=== PATIENT | female | born 1935 | race Caucasian/White ===

== ENCOUNTER 2017-02-25 08:00 | Outpatient (CLI) | payer MEDICARE ==
[2017-02-25 19:30] LABS: BILIRUBIN,URINE NEGATIVE (NEGATIVE); GLUCOSE, URINE (UA) NEGATIVE (NEGATIVE); KETONES,URINE (UA) NEGATIVE (NEGATIVE); LEUKOCYTE ESTERASE, URINE NEGATIVE (NEGATIVE); NITRITE,URINE NEGATIVE (NEGATIVE); OCCULT BLOOD,URINE LARGE (NEGATIVE); PROTEIN,URINE TRACE mg/dL (NEGATIVE); UROBILINOGEN,URINE 0.2 (NORMAL) E.U./dL (NORMAL)
[2017-02-25 19:45] LABS: CLARITY,URINE CLEAR (CLEAR)
[2017-02-25 19:46] LABS: BACTERIA,URINE Rare /HPF (None Seen); MUCUS,URINE Few Strands; RBC,URINE TNTC /HPF (0-5); SQUAMOUS EPITHELIAL CELL,UR FEW Squamous (<= Few)
[2017-02-25 19:47] LABS: CASTS, URINE 0-2 Hyaline Casts /LPF
== END 2017-02-25 08:01 | disposition home or self-care (01) ==
LOC: LAB.R 08:00
PROVIDERS: ATTEND Physician Assistant Medical
DX: N39.0 Urinary tract infection, site not specified (principal)
CPT/HCPCS: 81001; 87086

== ENCOUNTER 2017-02-25 08:00 | Outpatient (CLI) | payer MEDICARE ==
[2017-02-25 19:16] LABS: ALBUMIN 4.4 g/dL (3.2-5.5); ALBUMIN/GLOBULIN RATIO 1.3 (1.0-2.2); ALKALINE PHOSPHATASE 77 IU/L (42-121); ALT ALANINE AMINOTRANSFERASE 27 IU/L (10-60); AST ASPARTATE AMINOTRANSFERASE 35 IU/L (10-42); BILIRUBIN,TOTAL 0.4 mg/dL (0.2-1.0); BUN - BLOOD UREA NITROGEN 27 mg/dL (6-20); CALCIUM 9.5 mg/dL (8.5-10.3); CARBON DIOXIDE - CO2 27 mmol/L (21-32); CHLORIDE 106 mmol/L (101-111); CREATININE 1.1 mg/dL (0.4-1.0); GFR - MDRD 48 (>89); GLUCOSE 89 mg/dL (70-100); SODIUM 142 mmol/L (135-145); TOTAL PROTEIN 7.7 g/dL (6.7-8.2)
[2017-02-25 19:18] LABS: BASOPHILS # (AUTO) 0.1 10^3/uL (0.0-0.1); BASOPHILS % (AUTO) 0.8 %; EOSINOPHILS # (AUTO) 0.3 10^3/uL (0.0-0.7); EOSINOPHILS % (AUTO) 3.9 %; HGB - HEMOGLOBIN 12.1 g/dL (12.0-16.0); LYMPHOCYTES # (AUTO) 2.5 10^3/uL (1.5-3.5); LYMPHOCYTES % (AUTO) 32.2 %; MEAN CORPUSCULAR HGB CONC 31.9 g/dL (32.0-36.0); MEAN CORPUSCULAR VOLUME 87.8 fL (81.0-99.0); MEAN PLATELET VOLUME 7.9 fL (7.9-10.8); MONOCYTES # (AUTO) 0.8 10^3/uL (0.0-1.0); MONOCYTES % (AUTO) 10.7 %; NEUTROPHILS # (AUTO) 4.1 10^3/uL (1.5-6.6); NEUTROPHILS % (AUTO) 52.4 %; PLT - PLATELET COUNT 379 10^3/uL (130-450); RED CELL DISTRIBUTION WIDTH 15.2 % (12.0-15.0); WHITE BLOOD COUNT 7.8 x10^3/uL (4.8-10.8)
== END 2017-02-25 08:01 ==
LOC: LAB.WCP 08:00
PROVIDERS: ATTEND Physician Assistant Medical
DX: R53.1 Weakness (principal); F03.90 Unspecified dementia, unspecified severity, without behavioral disturbance, psychotic disturbance, mood disturbance, and anxiety; N39.0 Urinary tract infection, site not specified
CPT/HCPCS: 36415; 80053; 81001; 84443; 85025; 87086

== ENCOUNTER 2017-03-16 16:50 | Outpatient (CLI) | payer MEDICARE, OTHER | END 2017-03-16 16:51 | disposition critical access hospital (66) | LOC: EMS 16:50 | PROVIDERS: ATTEND Surgery | DX: S01.112A Laceration without foreign body of left eyelid and periocular area, initial encounter (principal); W01.0XXA Fall on same level from slipping, tripping and stumbling without subsequent striking against object, initial encounter; Y93.01 Activity, walking, marching and hiking; Y92.099 Unspecified place in other non-institutional residence as the place of occurrence of the external cause | CPT/HCPCS: A0425; A0429 ==

== ENCOUNTER 2017-03-16 17:05 | Emergency (ER) | payer MEDICARE, OTHER ==
[2017-03-16] MEDS ORDERED: TETANUS/DIPHTHERIA/PERTUSSIS 0.5 ML SYRINGE IM ONE (17:09)
[2017-03-16] MEDS ORDERED: LIDOCAINE-EPINEPH-TETRACAINE 3 ML SYRINGE TOP STA (17:10)
--- NOTE | 2017-03-16 17:11 | ED Physician Documentation ---
PD HPI HEAD INJURY - Stated complaint Stated Complaint: GLF HEAD LAC - History obtained from History obtained from: EMS - History of Present Illness Mechanism of head injury: Other (History from paramedics as the patient is very demented and does not remember falling. I guess she had a ground-level fall at the assisted living center today and has a laceration above her left eyebrow. Last tetanus is unknown. It sounds like she probably did not have loss of consciousness. The patient is without specific complaint.) Review of Systems Unable to obtain: Dementia PD PAST MEDICAL HISTORY - Allergies Allergies/Adverse Reactions: Allergies Allergy/AdvReac Type Severity Reaction Status Date / Time No Known Drug Allergies Allergy Verified 03/16/17 17:18 PD ED PE NORMAL - Vitals Vital signs reviewed: Yes - General General: Other (She is alert and pleasant but completely disoriented.) - HEENT HEENT: PERRL, EOMI, Other (There is a 1.5 cm laceration in the lateral part of the left eyebrow without underlying bony tenderness) - Neck Neck: Supple, no meningeal sign, No bony TTP - Back Back: No spinal TTP - Extremities Extremities: No deformity, No tenderness to palpate, Normal ROM s pain, No edema , No calf tenderness / cord - Neuro Neuro: solar sales ambassador 2-12 intact, No motor deficit, No sensory deficit Eye Opening: Spontaneous Motor: Obeys Commands Verbal: Confused GCS Score: 14 Results - Vitals Vitals: Vital Signs - 24 hr 03/16/17 03/16/17 17:09 18:32 Temperature 36.3 C L Heart Rate 69 89 Respiratory 16 18 Rate Blood Pressure 118/71 O2 Saturation 97 Oxygen O2 Source Room air - Rads (name of study) CT head and Cspine Radiology: EMP read contemporaneously (NAD) Procedures - Laceration (location) L forehead Length in cm: 1 Wound type: Linear Wound Preparation: Irrigated copiously NS Skin layer closure: Dermabond Other: Tetanus booster given Complexity: Simple PD MEDICAL DECISION MAKING - ED course ED course: Daughter arrived at bedside. Usually I would suture wound on the face in the eyebrow, but the patient became agitated with attempts at cleaning it became clear that this really would not work and it was Dermabond it instead with good results. Departure - Departure Disposition: 01 Home, Self Care Clinical Impression: Facial laceration Qualifiers: Encounter type: initial encounter Qualified Code(s): S01.81XA - Laceration without foreign body of other part of head, initial encounter Fall Qualifiers: Encounter type: initial encounter Qualified Code(s): W19.XXXA - Unspecified fall, initial encounter Head injury Qualifiers: Encounter type: initial encounter Qualified Code(s): S09.90XA - Unspecified injury of head, initial encounter Instructions: ED Head Injury Closed, ED Laceration Face Skin Glue Ch Discharge Date/Time: 03/16/17 18:33
[2017-03-16 17:18] VITALS: BP 118/71
--- NOTE | 2017-03-16 18:15 | CT Report ---
EXAM: CT HEAD EXAM DATE: 03/16/2017 05:56 PM. CLINICAL HISTORY: Confusion. COMPARISON: None. TECHNIQUE: Multiaxial CT images were obtained from the foramen magnum to the vertex. Reformats: Coron al. IV contrast: None. In accordance with CT protocol optimization, one or more of the following dose reduction techniques w ere utilized for this exam: automated exposure control, adjustment of mA and/or KV based on patient s ize, or use of iterative reconstructive technique. FINDINGS: Parenchyma: No intraparenchymal hemorrhage. No evidence of mass, midline shift, or CT findings of inf arction. Meeks-white differentiation is distinct. Extraaxial Spaces: There is generalized volume loss. No subdural or epidural collections identified. Ventricles: Normal in size and position. Sinuses and Orbits: Imaged paranasal sinuses, orbits, and mastoids show no significant abnormality. Bones: No evidence of fracture or calvarial defect. Other: Likely left frontal scalp soft tissue swelling. IMPRESSION: No acute intracranial CT abnormality. [facility] Referring Provider Line: [phone] SITE ID: [id number]
--- NOTE | 2017-03-16 18:17 | CT Report ---
EXAM: CT CERVICAL SPINE WITHOUT CONTRAST DATE: 03/16/2017 05:56 PM. HISTORY: Fall, confusion COMPARISONS: None. TECHNIQUE: Thin-section axial images were acquired of the cervical spine without contrast. Post-proce ssing: Coronal and sagittal reformats. Other: None. In accordance with CT protocol optimization, one or more of the following dose reduction techniques w ere utilized for this exam: automated exposure control, adjustment of mA and/or KV based on patient s ize, or use of iterative reconstructive technique. FINDINGS: Alignment: No evidence of dislocation. Bones: No fracture or bone lesion. Interspace Levels/Facets: There is moderate multilevel degenerative disease. Musculature: No significant abnormalities are seen. Other: No evidence of prevertebral soft tissue swelling or apical pneumothorax. IMPRESSION: No evidence of cervical spine fracture or dislocation. [facility] Referring Provider Line: [phone] SITE ID: [id number]
== END 2017-03-16 18:33 | disposition home or self-care (01) ==
LOC: EDUNIT# → SUPCPDRO 17:05 → ED 17:05
DX: S01.81XA Laceration without foreign body of other part of head, initial encounter (principal); W01.0XXA Fall on same level from slipping, tripping and stumbling without subsequent striking against object, initial encounter; Y92.099 Unspecified place in other non-institutional residence as the place of occurrence of the external cause; Z23 Encounter for immunization; F03.90 Unspecified dementia, unspecified severity, without behavioral disturbance, psychotic disturbance, mood disturbance, and anxiety
CPT/HCPCS: 12011; 70450; 72125; 90471; 99283

== ENCOUNTER 2017-04-20 11:05 | Outpatient (CLI) | payer MEDICARE, OTHER ==
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
== END 2017-04-20 11:06 | disposition home or self-care (01) ==
LOC: PC 11:05
PROVIDERS: ATTEND Nurse Practitioner
DX: Z51.5 Encounter for palliative care (principal); F03.90 Unspecified dementia, unspecified severity, without behavioral disturbance, psychotic disturbance, mood disturbance, and anxiety; F32.9 Major depressive disorder, single episode, unspecified; K59.00 Constipation, unspecified; M19.90 Unspecified osteoarthritis, unspecified site; K21.9 Gastro-esophageal reflux disease without esophagitis; Z91.81 History of falling; R26.81 Unsteadiness on feet; Z87.891 Personal history of nicotine dependence; Z79.82 Long term (current) use of aspirin; Z79.1 Long term (current) use of non-steroidal anti-inflammatories (NSAID); Z66 Do not resuscitate

== ENCOUNTER 2017-06-29 12:40 | Outpatient (CLI) | payer MEDICARE, OTHER ==
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
== END 2017-06-29 12:41 | disposition home or self-care (01) ==
LOC: PC 12:40
PROVIDERS: ATTEND Nurse Practitioner
DX: Z51.5 Encounter for palliative care (principal); N39.0 Urinary tract infection, site not specified; F03.91 Unspecified dementia, unspecified severity, with behavioral disturbance; F32.9 Major depressive disorder, single episode, unspecified; K59.00 Constipation, unspecified; R63.4 Abnormal weight loss; Z91.81 History of falling; Z66 Do not resuscitate

== ENCOUNTER 2017-07-26 15:05 | Outpatient (CLI) | payer MEDICARE, OTHER ==
--- NOTE | 2017-07-26 18:16 | CONSULTATION NOTE ---
Palliative Care Follow Up - Referral Referring Provider: Dr Ren Time of Visit: 07/26/2017. 15:05 - 15:35 Referral setting: Assisted living (Seen in home setting due to taxing and considerable effort required to leave the home due to limited mobility secondary to advanced dementia.) Referral Reason: Follow up UTI - Information Sources Records reviewed: RN notes reviewed, Previous records reviewed History/Review of Systems obtained from: Family, Nursing Exam limitations: Clinical condition (Advanced dementia) - History of Present Illness Update Brief HPI Update: -82-year-old woman with advanced dementia, in relatively good health without diagnoses foor cardiovascular respiratory disease or diabetes. -She was successfully treated for a UTI on 06/29/17, resolving her symptom burden , including no reported falls or resident altercations since then, and is back to her baseline cognitive status. -Medical history: Degenerative disc disease of lumbar, h/o long-term steroid and long-term aspirin use, h/o smoking. -Patient is lying in bed, responding with word salad and reaching out toward my face and hair, this is typical behavior for her. She was mildly resistant during parts of the exam. -She appears calm and relaxed, and arouses easily but wants to curl back up to nap. -Nursing reports she refuses medicines fairly routinely, also is erratic about meals. -She has had a mild drop in weight, previously in the 150-157 lb range, but since April she has ranged from 145 - 148 lbs. -Intermittent behaviors within the normal range for this demographic, but she is easily redirectable. -Spoke with daughter regarding starting D Mannose as E coli UTI prophylactic. Social History - Living Situation Living arrangement: Assisted living ([facility] dementia unit) Living Situation: With caregiver(s) Support System: Daughter/VAN Cruz lives close by, works at a local school. The patient also has two sons. Medications/Allergies - Medications Home Medications: Ambulatory Orders Medication Instructions Recorded Confirmed Acetaminophen 500 mg PO Q4H PRN 04/20/17 04/20/17 Aspirin 81 mg PO DAILY 04/20/17 06/29/17 Citalopram Hydrobromide 20 mg PO DAILY 04/20/17 06/29/17 [Citalopram HBr] Diclofenac Sodium [Voltaren] 100 gm TP BID PRN 04/20/17 06/29/17 Multivitamin [Multiple Vitamins] 1 ea PO DAILY 04/20/17 06/29/17 Naproxen Sodium 220 mg PO BID 04/20/17 06/29/17 Omeprazole 20 mg PO DAILY 04/20/17 06/29/17 Polyethylene Glycol 3350 [Miralax] 17 gm PO DAILY PRN 04/20/17 06/29/17 Acetaminophen [Arthritis Pain 1,300 mg PO BID MDD NTE 3000MG IN 06/29/17 Relief] 24 HOURS Sulfamethox/Trimeth 800/160 1 tab PO BID MDD take for 5 days 06/29/17 06/29/17 [Bactrim Ds] - Allergies Allergies/Adverse Reactions: Allergies Allergy/AdvReac Type Severity Reaction Status Date / Time No Known Drug Allergies Allergy Verified 03/16/17 17:18 Review of Systems - Constitutional Constitutional: reports: Poor appetite (sporadic), Weight loss (mild drop in weight, previously in the 150-157 lb range, but since April she has ranged from 145 - 148 lbs. 07/25 145.2 lbs. 07/21 148 lbs. 07/07 145 lbs. 06/23 147 lbs. 147 lbs. 05/26 146.4 lbs. 05/19 150.8 lbs. 05/12 149.6 lbs. 04/26 152.2 lbs. 04/21 151.8 lbs. 04/02 153.6 bs. 02/28 157.8 lbs. 01/22/17 153.2 lbs. 06/26/16 152 lbs. 151.6 lbs.) - Cardiovascular Cardiovascular: denies: Decr. exercise tolerance - Respiratory Respiratory: denies: Cough - Musculoskeletal Musculoskeletal: denies: Assistive devices (doesn't like to use w/c or walker), Transfer issues Physical Exam - Vital Signs Temperature: 97.1 F Pulse Rate: 71 O2 Saturation: 95 Blood Pressure: 123/52 - Physical Exam General Appearance: positive: No acute distress Eyes Bilateral: positive: No lid inflammation, Conjunctivae nml, No scleral icterus ENT: positive: No signs of dehydration Neck: positive: Trachea midline Cardiovascular: positive: Regular rate & rhythm Respiratory: positive: Chest non-tender, No respiratory distress, Diminished throughout (mildly) Abdomen: negative: Guarding Skin: positive: No symptoms Extremities: positive: No pedal edema Neurologic/Psychiatric: positive: Disoriented to person, Disoriented to place, Disoriented to time, Unintelligible speech, Flat affect Palliative Care - POLST Patient has POLST: Yes POLST Status: DNR, Comfort Measures Pain: No pain, Comment (Managed with routine naproxin BID and routine Tylenol daily.) Drowsiness/Sedation: Mild (1-3) Anxiety: None Anorexia: Mild (1-3) - Palliative Care Discussion: Goals remain the same: focus on comfort and quality of life, not prolongation of life. Impression and Recommendations - Palliative Care Impression: This is an 82-year-old woman with quite advanced dementia, who has rebounded well since being treated for a UTI last month, and is back to her baseline behaviors and cognitive levels. There are no reports of recent falls since her UTI was treated, but she continues to be ambulatory and at high risk of falls and their sequelae. D-Mannose will be started as a prophylactic for E coli infections. Palliative care will continue to monitor and recommend transition to Hospice when appropriate. Recommendations/Counseling Done: h/o UTI: Infection from last month successfully resolved with Bactrim regimen of 5 days. Start D-Mannose for UTI prophylaxis: 500 mg capsule, 4 caps (2g) daily. Also OK to give 1g (2 caps) BID. Can open capsules and mix with pudding , etc. Advanced dementia with depression: Behaviors have returned to baseline, with no report of altercations. Cognition and mood at baseline. Continue citalopram. Constipation: BMs from daily to every 2-3 days. On Miralax and Senna daily. Continue to monitor. Osteoarthritis: Stable, no indications of pain. Contniue Naproxen and Tylenol BID and Voltaren 1% gel prn. Advanced care planning: No updates. Family's goals are comfort care and quality of life. Time Spent: 30 minutes were spent with more than 50% of the time spent on counseling, education, and coordination of care.
== END 2017-07-26 15:06 | disposition home or self-care (01) ==
LOC: PC 15:05
PROVIDERS: ATTEND Nurse Practitioner
DX: Z51.5 Encounter for palliative care (principal); F03.90 Unspecified dementia, unspecified severity, without behavioral disturbance, psychotic disturbance, mood disturbance, and anxiety; R63.4 Abnormal weight loss; F32.9 Major depressive disorder, single episode, unspecified; K59.00 Constipation, unspecified; Z66 Do not resuscitate; Z91.81 History of falling; Z87.440 Personal history of urinary (tract) infections

== ENCOUNTER 2017-10-20 10:15 | Outpatient (CLI) | payer MEDICARE, OTHER ==
--- NOTE | 2017-10-20 18:44 | CONSULTATION NOTE ---
Palliative Care Follow Up - Referral Referring Provider: Dr Ren Time of Visit: 10/20/2017. 10:15 - 10:35 Referral setting: Assisted living (Seen in home setting due to taxing and considerable effort required to leave the home due to limited mobility secondary to advanced dementia.) Referral Reason: Dementia - Information Sources Records reviewed: Previous records reviewed History/Review of Systems obtained from: Patient, Nursing Exam limitations: Clinical condition (Advanced dementia, short-term memory deficits) - History of Present Illness Update Brief HPI Update: -82-year-old woman with advanced dementia, in relatively good health without diagnoses for cardiovascular respiratory disease or diabetes. -Medical history: Degenerative disc disease of lumbar, h/o long-term steroid and long-term aspirin use, h/o smoking, h/o frequent falls, weight loss, h/o recurrent UTIs. -She has a history of UTIs, but no reported UTI since starting D-Mannose as a prophylaxis in July 2017.. -Patient continues with stable behaviors, but relatively frequent, non-injury falls (she refuses to use wheelchair or walker). -She has a sporadic appetite and is slowly losing weight. She is 143.8 lbs in September. Between April - August 2017 she ranged from 145 - 148 lbs, and previous to that was in the 150-157 lb range. -She likes a certain quiet corner in the facility where she enjoys lying back in the recliner. -Today she is cooperative and sociable, although she refuses to allow me to take any vital signs. -She is always busy with her hands, fidgeting today with one of her shoes, and touching me, my clothes, my badge. -She is at her baseline cognition and function. Nursing reports no issues and that she has been very stable for several months. -Left two voicemail messages for Nancy, her daughter. Social History - Living Situation Living arrangement: Assisted living ([facility] dementia unit) Living Situation: With caregiver(s) Support System: Daughter/DPSHONA waller lives close by and works at a local school. The patient also has two sons. Medications/Allergies - Medications Home Medications: Ambulatory Orders Medication Instructions Recorded Confirmed Acetaminophen 500 mg PO Q4H PRN 04/20/17 10/20/17 Aspirin 81 mg PO DAILY 04/20/17 10/20/17 Citalopram Hydrobromide 20 mg PO DAILY 04/20/17 10/20/17 [Citalopram HBr] Diclofenac Sodium [Voltaren] 100 gm TP BID PRN 04/20/17 10/20/17 Multivitamin [Multiple Vitamins] 1 ea PO DAILY 04/20/17 10/20/17 Naproxen Sodium 220 mg PO BID 04/20/17 10/20/17 Omeprazole 20 mg PO DAILY 04/20/17 10/20/17 Polyethylene Glycol 3350 [Miralax] 17 gm PO DAILY PRN 04/20/17 10/20/17 Acetaminophen [Arthritis Pain 1,300 mg PO BID MDD NTE 3000MG IN 06/29/17 Relief] 24 HOURS D-Mannose Capsule 2,000 mg PO DAILY 10/20/17 10/20/17 Senna [Senokot] 2 tab PO DAILY 10/20/17 10/20/17 - Allergies Allergies/Adverse Reactions: Allergies Allergy/AdvReac Type Severity Reaction Status Date / Time No Known Drug Allergies Allergy Verified 03/16/17 17:18 Review of Systems - Constitutional Constitutional: reports: Weight loss (Steadily losing weight: 143.8 lbs in September. Between April - August 2017 she ranged from 145 - 148 lbs., and previous to that was in the 150-157 lb range. 07/25 145.2 lbs. 07/21 148 lbs. 07/07 145 lbs. 06/23 147 lbs. 06/02 147 lbs. 05/26 146.4 lbs. 05/19 150.8 lbs. 05/12 149.6 lbs. 04/26 152.2 lbs. 04/21 151.8 lbs. 04/02 153.6 bs. 02/28 157.8 lbs. 01/22/17 153.2 lbs. 06/26/16 152 lbs. 04/26/16 151.6 lbs.) - Musculoskeletal Musculoskeletal: reports: Assistive devices (doesn't like using wheelchair or walker, so has h/o falls), Transfer issues - Neurological Neurological: reports: Memory problems - Hematologic/Lymphatic Hematologic/Lymphatic: reports: Recurrent infections (h/o UTIs) - Other Findings Other Findings: Unable to obtain ROS from patient. Physical Exam - Physical Exam General Appearance: positive: No acute distress, Alert Eyes Bilateral: positive: Conjunctivae nml, No scleral icterus ENT: positive: No signs of dehydration Neck: positive: No JVD, Trachea midline Cardiovascular: positive: Regular rate & rhythm Respiratory: positive: Chest non-tender, No respiratory distress, Breath sounds nml Skin: positive: No symptoms Extremities: positive: Nml appearance, No pedal edema Neurologic/Psychiatric: positive: Mood/affect nml, Disoriented to person, Disoriented to place, Disoriented to time, Unintelligible speech (word salad) Palliative Care - POLST Patient has POLST: Yes POLST Status: DNR, Comfort Measures Pain: Pain unchanged, Comment (Pain managed with routine naproxen and routine arthritis caplet - acetaminophen 1300mg BID.) Impression and Recommendations - Palliative Care Impression: 82-year-old woman with advanced dementia, and no recent UTIs since starting D- mannose as a prophylactic in July 2017. Patient is stable and at her baseline functionally and cognitively but continues to steadily lose weight, due to sporadic appetite and disinterest in food secondary to her advanced dementia. Palliative care will continue to monitor and recommend transition to hospice when criteria are met. Recommendations/Counseling Done: h/o frequent UTIs: Improved, with no recent UTIs since starting D-Mannose 2000mg daily (4 capsules) in July 2017. Advanced dementia with depression: Good, at baseline, no behaviors reports. Continue citalopram. Constipation: Good, has daily bowel movements usually, with sometimes 2-3 days without. Continue Miralax and Senna. Osteoarthritis: At baseline on routine naproxen and "arthritis pain" acetaminophen (1300mg BID) and voltaren gel. Advanced care planning: Left two messages with daughter. Goals are comfort care and quality of life. POLST signed and in place. Follow up 4-6 weeks and as needed. Time Spent: 20 minutes were spent with more than 50% of the time spent on counseling and coordination of care.
== END 2017-10-20 10:16 | disposition home or self-care (01) ==
LOC: PC 10:15
PROVIDERS: ATTEND Nurse Practitioner
DX: Z51.5 Encounter for palliative care (principal); F03.90 Unspecified dementia, unspecified severity, without behavioral disturbance, psychotic disturbance, mood disturbance, and anxiety; R63.4 Abnormal weight loss; F32.9 Major depressive disorder, single episode, unspecified; K59.00 Constipation, unspecified; M19.90 Unspecified osteoarthritis, unspecified site; Z66 Do not resuscitate; Z79.82 Long term (current) use of aspirin; Z91.81 History of falling; Z87.440 Personal history of urinary (tract) infections

== ENCOUNTER 2017-12-28 15:00 | Outpatient (CLI) | payer MEDICARE, OTHER ==
--- NOTE | 2017-12-28 16:28 | CONSULTATION NOTE ---
Palliative Care Follow Up - Referral Referring Provider: Dr Andrew Ren Time of Visit: 12/28/2017. 15:00 - 15:15 Referral setting: Assisted living (Seen in home setting due to taxing and considerable effort required to leave the home due to limited mobility secondary to advanced dementia.) Referral Reason: Dysuria, dementia - Information Sources Records reviewed: RN notes reviewed, Previous records reviewed History/Review of Systems obtained from: Family, Nursing Exam limitations: Clinical condition (Advanced dementia; aphasia) - History of Present Illness Update Brief HPI Update: -82-year-old woman with advanced dementia, in relatively good health without diagnoses for cardiovascular respiratory disease or diabetes. -Medical history: Degenerative disc disease of lumbar, h/o long-term steroid and long-term aspirin use, h/o smoking, h/o frequent falls, weight loss, h/o recurrent UTIs. -She has a history of UTIs, improved since starting D-Mannose as a prophylaxis in July 2017. -She's at her baseline:fidgeting with hands, mental confusion, and word salad. -Today she is cooperative and relaxed with the assessment, which is conducted mostly standing since she does not want to sit down for long. She allows me to get her vital signs which normally she refuses. She makes sporadic eye contact, reaches out for my hand, to touch my clothes, takes my name tag. -Nursing has reported that the patient has burning with urination. I authorized a clean catch for urinalysis with culture, if they are able to obtain it. -If not, and if symptoms continue, we can start a prophylactic antibiotic. I spoke with Nancy, her daughter, about the benefits and burdens, and she agreed with this plan. -Nursing will monitor for continuing or new symptoms. -The patient is slowly losing weight. She is currently 140.4 lbs, down from a previous range of 150-157 lbs prior to April 2017. -The patient walks without aid of a walker and can wander in to other residents' rooms, or lies down on her roommate's bed. Social History - Living Situation Living arrangement: Assisted living ([facility] dementia unit) Living Situation: With caregiver(s) Support System: Daughter/DPSHOAN Cruz lives close by and works at a local school. The patient also has two sons. Medications/Allergies - Medications Home Medications: Ambulatory Orders Medication Instructions Recorded Confirmed Acetaminophen 500 mg PO Q4H PRN 04/20/17 12/28/17 Aspirin 81 mg PO DAILY 04/20/17 12/28/17 Citalopram Hydrobromide 20 mg PO DAILY 04/20/17 12/28/17 [Citalopram HBr] Diclofenac Sodium [Voltaren] 100 gm TP BID PRN 04/20/17 12/28/17 Multivitamin [Multiple Vitamins] 1 ea PO DAILY 04/20/17 12/28/17 Naproxen Sodium 220 mg PO BID 04/20/17 12/28/17 Omeprazole 20 mg PO DAILY 04/20/17 12/28/17 Polyethylene Glycol 3350 [Miralax] 17 gm PO DAILY PRN 04/20/17 12/28/17 Acetaminophen [Arthritis Pain 1,300 mg PO BID MDD NTE 3000MG IN 06/29/17 12/28/17 Relief] 24 HOURS D-Mannose Capsule 2,000 mg PO DAILY 10/20/17 12/28/17 Senna [Senokot] 2 tab PO DAILY 10/20/17 12/28/17 - Allergies Allergies/Adverse Reactions: Allergies Allergy/AdvReac Type Severity Reaction Status Date / Time No Known Drug Allergies Allergy Verified 03/16/17 17:18 Review of Systems - Constitutional Constitutional: reports: Weight loss (140.4 lbs 12/25/2017. 143.8 lbs September . Range was 145-148 from April to August 2017, and previous to that, range was 150- 157 lbs.) - Cardiovascular Cardiovascular: denies: Decr. exercise tolerance - Gastrointestinal Gastrointestinal: reports: Constipation (episodic, managed) - Musculoskeletal Musculoskeletal: reports: Assistive devices (doesn't like using walker or whee lchair.). denies: Transfer issues - Neurological Neurological: reports: Memory problems, Other (word salad) Physical Exam - Vital Signs Temperature: 96.5 F Pulse Rate: 80 O2 Saturation: 97 (room air) Blood Pressure: 131/97 (wrist cuff) - Physical Exam General Appearance: positive: No acute distress, Alert Eyes Bilateral: positive: EOMI, No lid inflammation, Conjunctivae nml, No scleral icterus ENT: positive: No signs of dehydration Neck: positive: Trachea midline Cardiovascular: positive: Regular rate & rhythm, No murmur Respiratory: positive: Chest non-tender, No respiratory distress, Breath sounds nml Skin: positive: No symptoms Extremities: positive: Nml appearance, No pedal edema Neurologic/Psychiatric: positive: Mood/affect nml, Disoriented to person, Disoriented to place, Disoriented to time Palliative Care - POLST Patient has POLST: Yes POLST Status: DNR, Comfort Measures Pain: Pain unchanged, Comment (Managed with routine naproxen and Tylenol, with Voltaren gel as needed) Performance Status: Ambulatory, self-transfers. At baseline for confusion and disorientation to self, place, time. Today is cooperative and calm during assessment. Impression and Recommendations - Palliative Care Impression: 82-year-old woman with advanced dementia, has had no reported UTIs since starting D-mannose as a prophylactic in July 2017. Today nursing reports b urning with urination, so will run a urine culture if patient cooperates. Patient continues to steadily lose weight, due to sporadic appetite and disinterest in food secondary to her advanced dementia. Palliative care will continue to provide support and monitor for to hospice when appropriate. Recommendations/Counseling Done: UTIs: Nursing reports new incidence of burning with urination. Patient has h/o frequent UTIs but has had none since starting D-Mannose 2000mg daily in July 2017. Run UA with C&S if indicated. Continue D-Mannose. Will start empiric antibiotic if unable to obtain UA. Monitor Advanced dementia with depression: Continues at baseline cognition with no behavioral issues. Continue citalopram. Constipation: At baseline, with daily bowel movements interspersed with periods of several days of no bowel movements. . Is on daily Miralax and two tablets Senna. Osteoarthritis: Stable. Continue routine naproxen and acetaminophen (1300mg BID), with voltaren gel as needed. Weight loss: Appetite is sporadic, continue to monitor and consider adding protein shake/supplement. Advanced care planning: Spoke with daughter regarding urinalysis and starting an empiric antibiotic if clean catch is not successful. Patient agrees to this plan. Goals remain comfort care and quality of life. POLST signed and in place. Follow up on the urinalysis, and every 6-8 weeks or as needed. Time Spent: 15 minutes were spent with more than 50% of the time spent on counseling and coordination of care.
== END 2017-12-28 15:01 | disposition home or self-care (01) ==
LOC: PC 15:00
PROVIDERS: ATTEND Nurse Practitioner
DX: Z51.5 Encounter for palliative care (principal); F03.90 Unspecified dementia, unspecified severity, without behavioral disturbance, psychotic disturbance, mood disturbance, and anxiety; R29.6 Repeated falls; F32.9 Major depressive disorder, single episode, unspecified; K59.00 Constipation, unspecified; M19.90 Unspecified osteoarthritis, unspecified site; R63.4 Abnormal weight loss; Z87.440 Personal history of urinary (tract) infections; Z79.82 Long term (current) use of aspirin

== ENCOUNTER 2018-02-13 19:34 | Outpatient (CLI) | payer MEDICARE, OTHER | END 2018-02-13 19:35 | disposition critical access hospital (66) | LOC: EMS 19:34 | PROVIDERS: ATTEND Surgery | DX: M54.5 Low back pain (principal) | CPT/HCPCS: A0425; A0429 ==

== ENCOUNTER 2018-02-13 19:48 | Emergency (ER) | payer MEDICARE, OTHER ==
--- NOTE | 2018-02-13 20:02 | ED Physician Documentation ---
PD HPI BACK PAIN - Stated complaint Stated Complaint: BACK PAIN - History obtained from History obtained from: Patient, EMS, Caregiver - History of Present Illness Timing - onset: Today Timing - duration: Days (1) Timing - details: Abrupt onset (The patient has significant dementia and cannot give history. No noted falls recently by report. Had some falls or just found on floor bedside by providers occasionally. Not today. Staff noted the patient to be in pain when they were sitting her up or turning her. She was reluctant to try walking, and grimaced with movement.) Location: Other (seemed like back pain but hard to assess where due to her dementia.) Quality: Pain Associated symptoms: No: Fever, Weakness, Numbness Worsened by: Movement Contributing factors: No: Lifting, Twisting Similar symptoms before: Has not had sx before Recently seen: Clinic ([facility]) Review of Systems Unable to obtain: Dementia, Other (info from daughter at bedside, who sees her often.) Constitutional: denies: Fever Respiratory: denies: Cough GI: denies: Vomiting, Diarrhea, Bloody / black stool Skin: denies: Rash, Laceration (s) Neurologic: reports: Confused (chronic with the dementia). denies: Head injury PD PAST MEDICAL HISTORY - Past Medical History Cardiovascular: None Respiratory: None Neuro: Dementia Endocrine/Autoimmune: None - Past Surgical History Past Surgical History: No - Present Medications Home Medications: Ambulatory Orders Medication Instructions Recorded Confirmed Acetaminophen 500 mg PO Q4H PRN 04/20/17 12/28/17 Aspirin 81 mg PO DAILY 04/20/17 12/28/17 Citalopram Hydrobromide 20 mg PO DAILY 04/20/17 12/28/17 [Citalopram HBr] Diclofenac Sodium [Voltaren] 100 gm TP BID PRN 04/20/17 12/28/17 Multivitamin [Multiple Vitamins] 1 ea PO DAILY 04/20/17 12/28/17 Naproxen Sodium 220 mg PO BID 04/20/17 12/28/17 Omeprazole 20 mg PO DAILY 04/20/17 12/28/17 Polyethylene Glycol 3350 [Miralax] 17 gm PO DAILY PRN 04/20/17 12/28/17 Acetaminophen [Arthritis Pain 1,300 mg PO BID MDD NTE 3000MG IN 06/29/17 12/28/17 Relief] 24 HOURS D-Mannose Capsule 2,000 mg PO DAILY 10/20/17 12/28/17 Senna [Senokot] 2 tab PO DAILY 10/20/17 12/28/17 Tramadol HCl 50 mg PO Q6H PRN #25 tablet 02/13/18 - Allergies Allergies/Adverse Reactions: Allergies Allergy/AdvReac Type Severity Reaction Status Date / Time No Known Drug Allergies Allergy Verified 02/13/18 19:54 - Living Situation Living Situation: reports: Alone Living Arrangement: reports: shelter - Social History Does the pt smoke?: No Smoking Status: Never smoker Does the pt drink ETOH?: No Does the pt have substance abuse?: No - Immunizations Immunizations are current?: No - POLST Patient has POLST: Yes PD ED PE NORMAL - Vitals Vital signs reviewed: Yes - General General: No acute distress, Well developed/nourished. No: Alert and oriented X 3 (alert and conversant but not oriented to person nor place. ) - HEENT HEENT: Atraumatic - Neck Neck: Supple, no meningeal sign, No adenopathy - Cardiac Cardiac: RRR, No murmur - Respiratory Respiratory: Clear bilaterally - Abdomen Abdomen: Soft, Non tender - Back Back: No CVA TTP, Other (some mild spinal tenderness in thoracolumbar area; hard to pin down exact location.) - Derm Derm: Normal color, Warm and dry - Neuro Neuro: No motor deficit, No sensory deficit, Other (normal knee reflexes. ) Results - Vitals Vitals: Vital Signs - 24 hr 02/13/18 02/13/18 19:54 23:06 Temperature 37.0 C Heart Rate 81 80 Respiratory 16 16 Rate Blood Pressure 110/76 110/78 O2 Saturation 100 100 Oxygen O2 Source Room air - Labs Labs: Laboratory Tests 02/13/18 02/13/18 02/13/18 20:23 20:23 20:23 WBC 10.5 RBC 4.31 Hgb 13.5 Hct 41.1 MCV 95.5 MCH 31.4 H MCHC 32.8 RDW 13.8 Plt Count 282 MPV 7.5 L Neut # (Auto) 6.9 H Lymph # (Auto) 2.3 [place] # (Auto) 1.0 Eos # (Auto) 0.1 Baso # (Auto) 0.1 Absolute Nucleated RBC 0.00 Nucleated RBC % 0.0 Sodium 141 Potassium 4.0 Chloride 108 Carbon Dioxide 25 Anion Gap 8.0 BUN 23 H Creatinine 0.9 Estimated GFR (MDRD) 60 L Glucose 118 H Lactic Acid 1.0 Calcium 9.0 Magnesium 2.1 Total Bilirubin 0.8 AST 27 ALT 23 Alkaline Phosphatase 69 Total Protein 7.0 Albumin 3.9 Globulin 3.1 Albumin/Globulin Ratio 1.3 Lipase 41 Urine Color Urine Clarity Urine pH Ur Specific [place] Urine Protein Urine Glucose (UA) Urine Ketones Urine Occult Blood Urine Nitrite Urine Bilirubin Urine Urobilinogen Ur Leukocyte Esterase Urine RBC Urine WBC Urine WBC Clumps Ur Squamous Epith Cells Urine Bacteria Ur Microscopic Review Urine Culture Comments 02/13/18 20:50 WBC RBC Hgb Hct MCV MCH MCHC RDW Plt Count MPV Neut # (Auto) Lymph # (Auto) [place] # (Auto) Eos # (Auto) Baso # (Auto) Absolute Nucleated RBC Nucleated RBC % Sodium Potassium Chloride Carbon Dioxide Anion Gap BUN Creatinine Estimated GFR (MDRD) Glucose Lactic Acid Calcium Magnesium Total Bilirubin AST ALT Alkaline Phosphatase Total Protein Albumin Globulin Albumin/Globulin Ratio Lipase Urine Color YELLOW Urine Clarity CLEAR Urine pH 5.5 Ur Specific [place] >=1.030 H Urine Protein NEGATIVE Urine Glucose (UA) NEGATIVE Urine Ketones 15 H Urine Occult Blood SMALL H Urine Nitrite NEGATIVE Urine Bilirubin NEGATIVE Urine Urobilinogen 1 (NORMAL) Ur Leukocyte Esterase NEGATIVE Urine RBC 11-25 H Urine WBC >25 H Urine WBC Clumps PRESENT Ur Squamous Epith Cells NONE SEEN Urine Bacteria None Seen Ur Microscopic Review INDICATED Urine Culture Comments INDICATED - Rads (name of study) thoracic and lumbar CT Radiology: Prelim report reviewed, Discussed with rads (T12 fracture 2 column with 50% loss of height. ) PD MEDICAL DECISION MAKING - ED course Complexity details: reviewed results (T12 fracture), considered differential (She has severe dementia. Daughter is here. We can try TLSO brace and see if tolerates it. She was upset at the oximeter clip on her finger, but ED techs did fit her for TLSO brace and she is wearing it for now. Seems more comfortable sitting up into wheelchair for family to bring her home. ), d/w patient Departure - Departure Disposition: 01 Home, Self Care Clinical Impression: Thoracic spine fracture Qualifiers: Encounter type: initial encounter Thoracic vertebra fracture level: T12 Fracture type: closed Fracture morphology: burst- stable Qualified Code(s): S22.081A - Stable burst fracture of T11-T12 vertebra, initial encounter for closed fracture Condition: Stable Record reviewed to determine appropriate education?: Yes Instructions: ED Fx Comp Vertebral Follow-Up: Andrew Ren DO [Primary Care Provider] - Nataliia Palomo ARNP [Provider Admit Priv/Credential] - Prescriptions: Tramadol HCl 50 mg PO Q6H PRN #25 tablet PRN Reason: Pain Comments: She has a fracture of the T-12 Vertebra. This is typically allowed to heal with time and restricted movement tailored for comfort. She can use the TLSO (thoraco-lumbar spinal orthosis) to help with comfort, particularly for being up and sitting. The brace does not need to be on all the time. Have her continue her current medications, including the Naproxen twice daily, and Tylenol 650 mg 4 times daily added for pain. Add Tramadol every 6 hours if needed for worse pain. Discharge Date/Time: 02/13/18 23:06
[2018-02-13] MEDS ORDERED: ACETAMINOPHEN 325 MG TABLET PO STA (20:10)
[2018-02-13 20:27] LABS: BASOPHILS # (AUTO) 0.1 10^3/uL (0.0-0.1); BASOPHILS % (AUTO) 0.6 %; EOSINOPHILS # (AUTO) 0.1 10^3/uL (0.0-0.7); EOSINOPHILS % (AUTO) 1.4 %; HGB - HEMOGLOBIN 13.5 g/dL (12.0-16.0); LYMPHOCYTES # (AUTO) 2.3 10^3/uL (1.5-3.5); LYMPHOCYTES % (AUTO) 21.9 %; MEAN CORPUSCULAR HEMOGLOBIN 31.4 pg (27.0-31.0); MEAN CORPUSCULAR HGB CONC 32.8 g/dL (32.0-36.0); MEAN CORPUSCULAR VOLUME 95.5 fL (81.0-99.0); MEAN PLATELET VOLUME 7.5 fL (7.9-10.8); MONOCYTES % (AUTO) 9.8 %; NEUTROPHILS # (AUTO) 6.9 10^3/uL (1.5-6.6); NEUTROPHILS % (AUTO) 66.3 %; PLT - PLATELET COUNT 282 10^3/uL (130-450); RED BLOOD COUNT 4.31 10^6/uL (4.20-5.40); RED CELL DISTRIBUTION WIDTH 13.8 % (12.0-15.0); WHITE BLOOD COUNT 10.5 x10^3/uL (4.8-10.8)
[2018-02-13 20:40] LABS: ALBUMIN 3.9 g/dL (3.2-5.5); ALBUMIN/GLOBULIN RATIO 1.3 (1.0-2.2); BILIRUBIN,TOTAL 0.8 mg/dL (0.2-1.0); CREATININE 0.9 mg/dL (0.4-1.0); MAGNESIUM 2.1 mg/dL (1.7-2.8)
[2018-02-13 20:57] LABS: GLUCOSE, URINE (UA) NEGATIVE (NEGATIVE); KETONES,URINE (UA) 15 mg/dL (NEGATIVE); LEUKOCYTE ESTERASE, URINE NEGATIVE (NEGATIVE); NITRITE,URINE NEGATIVE (NEGATIVE); OCCULT BLOOD,URINE SMALL (NEGATIVE); PH,URINE 5.5 PH (5.0-7.5); PROTEIN,URINE NEGATIVE (NEGATIVE); UROBILINOGEN,URINE 1 (NORMAL) E.U./dL (NORMAL)
[2018-02-13 21:07] LABS: BILIRUBIN,URINE NEGATIVE (NEGATIVE); CLARITY,URINE CLEAR (CLEAR); ICTOTEST,URINE NEGATIVE
[2018-02-13 21:08] LABS: BACTERIA,URINE None Seen /HPF (None Seen); SQUAMOUS EPITHELIAL CELL,UR NONE SEEN (<= Few); WBC CLUMPS,URINE PRESENT
[2018-02-13] MEDS ORDERED: DEXAMETHASONE 10 MG/ML VIAL PO STA (21:47)
--- NOTE | 2018-02-13 22:00 | CT Report ---
Reason: reportedly having back pain Procedure Date: 02/13/2018 Accession Number: [id number] / [id number] Procedure: CT - Thoracic Spine W/O CPT Code: FULL RESULT: EXAM: CT THORACIC SPINE WITHOUT CONTRAST EXAM DATE: 02/13/2018 09:26 PM. CLINICAL HISTORY: Back pain COMPARISONS: LUMBAR SPINE W/O 02/13/2018 9:04 PM. TECHNIQUE: Thin-section axial images were acquired of the thoracic spine from C7 to L1 without contrast. Post-processing: Coronal and sagittal reformats. Other: None. In accordance with CT protocol optimization, one or more of the following dose reduction techniques were utilized for this exam: automated exposure control, adjustment of mA and/or KV based on patient size, or use of iterative reconstructive technique. FINDINGS: Alignment: No scoliosis or spondylolisthesis. Bones: Positive for a comminuted 2 column fracture of the T12 vertebral body. There is 50% loss of central vertebral body height. There is retropulsion of fracture fragments narrowing the central spinal canal by up to 6 mm. Fracture does not extend into the pedicles, facets or lamina. No associated subluxation. No other fracture demonstrated. Disk Levels/Facets: Disk height appears maintained. Facet joints appear in satisfactory alignment. Musculature: There is paravertebral stranding around the T12 level consistent with mild hemorrhage. No other fluid collection. Other: Lung bases reveal dependent atelectasis without pleural effusion. IMPRESSION: 1. Comminuted 2 column, potentially unstable fracture of the T12 vertebral body. 50% loss of vertebral body height. Retropulsion causing 6 mm of central spinal canal narrowing. RADIA The above findings were discussed with Charles Fermin by Dr. Vladimir Villarreal at 21:59 hrs on 02/13/18.
--- NOTE | 2018-02-13 22:12 | CT Report ---
Reason: reportedly having back pain Procedure Date: 02/13/2018 Accession Number: [id number] / [id number] Procedure: CT - Lumbar Spine W/O CPT Code: FULL RESULT: EXAM: CT LUMBAR SPINE WITHOUT CONTRAST EXAM DATE: 02/13/2018 09:05 PM. CLINICAL HISTORY: Back pain. COMPARISONS: THORACIC SPINE W/O 02/13/2018 9:04 PM MRI LUMBAR SPINE 05/10/2012 12:42 PM. TECHNIQUE: Thin-section axial images were acquired of the lumbar spine from T12 to S1 without contrast. Post-processing: Coronal and sagittal reformats. Other: None. In accordance with CT protocol optimization, one or more of the following dose reduction techniques were utilized for this exam: automated exposure control, adjustment of mA and/or KV based on patient size, or use of iterative reconstructive technique. FINDINGS: Alignment: No scoliosis or spondylolisthesis. Bones: Five [id number] lumbar vertebral bodies are present. A T12 compression fracture is partially visualized. Please refer to thoracic spine CT report. All lumbar vertebrae are maintained in height. There is no evidence of a lumbar spine fracture. The visible osseous structures are osteopenic suggesting underlying osteoporosis. Disk Levels/Facets: T12-L1: Unremarkable. L1-L2: There is mild anterior endplate spurring and mild disk bulging. No canal or foraminal stenosis. Mild facet hypertrophy is noted. L2-L3: There is mild anterior spurring and disk bulging. There is mild bilateral facet hypertrophy. No significant canal or foraminal stenosis present L3-L4: There is mild anterior end plate spurring. There is a mild disk bulge and bilateral facet hypertrophy. Central canal is mildly narrowed. No significant foraminal stenosis. L4-L5: There is moderate disk narrowing and vacuum disk. There is endplate spurring and generalized disk bulging. There is mild to moderate bilateral facet hypertrophy. Central canal is mildly narrowed. No significant foraminal stenosis. L5-S1: There is moderate to severe disk narrowing and mild vacuum disk present there is posterior osseous ridging and disk bulging. There is [id number] bilateral facet hypertrophy. No significant central canal stenosis. There is mild to moderate narrowing of the neural foramen and subarticular recesses bilaterally. Musculature: Unremarkable. Other: The visualized retroperitoneum is unremarkable. Multiple perineural cysts are noted in the sacrum similar to the prior MRI. IMPRESSION: 1. A T12 compression fracture is partially visualized. Please refer to thoracic spine CT report. 2. No evidence of a lumbar spine fracture or subluxation. 3. Mild to moderate multilevel lumbar spondylosis and degenerative disk disease. This results in a mild degree of central canal stenosis at L3-L4 and L4-L5. At L5-S1, there is mild to moderate bilateral neural foramen and subarticular recess narrowing. RADIA
[2018-02-13] MEDS ORDERED: traMADol 50 MG TABLET PO STA (22:18)
[2018-02-13 23:07] VITALS: BP 110/78
== END 2018-02-13 23:06 | disposition home or self-care (01) ==
LOC: EDUNIT# → ED 19:48
DX: S22.081A Stable burst fracture of T11-T12 vertebra, initial encounter for closed fracture (principal); W19.XXXA Unspecified fall, initial encounter; Y92.129 Unspecified place in nursing home as the place of occurrence of the external cause; F03.90 Unspecified dementia, unspecified severity, without behavioral disturbance, psychotic disturbance, mood disturbance, and anxiety; Z79.82 Long term (current) use of aspirin; R41.0 Disorientation, unspecified
CPT/HCPCS: 36415; 72128; 72131; 80053; 81001; 83605; 83690; 83735; 85025; 87086; 99283; 99284; A9270; 81003

== ENCOUNTER 2018-02-16 11:40 | Outpatient (CLI) | payer MEDICARE, OTHER ==
--- NOTE | 2018-02-16 14:40 | CONSULTATION NOTE ---
Palliative Care Follow Up - Referral Referring Provider: Dr Ren Time of Visit: 02/16/2018. 11:40 - 12:00 Referral setting: Assisted living (Seen in home setting due to taxing and considerable effort required to leave the home due to limited mobility secondary to advanced dementia.) Referral Reason: Compression fracture T12 - Information Sources Records reviewed: RN notes reviewed, Previous records reviewed History/Review of Systems obtained from: Patient, Family, Nursing Exam limitations: Clinical condition (Advanced dementia; confusion; word salad) - History of Present Illness Update Brief HPI Update: -82-year-old woman with advanced dementia, in relatively good health without diagnoses for cardiovascular respiratory disease or diabetes. -Medical history: Degenerative disc disease of lumbar, h/o long-term steroid and long-term aspirin use, h/o smoking, h/o frequent falls, weight loss, h/o recurrent UTIs. She has a history of UTIs, improved since starting D-Mannose as a prophylaxis in July 2017. In past few days, nursing reported ncreased back pain Patient sent to ED on 02/13, xray revealed T12 compression fracture. DC'd back to [facility] on tramadol 50mg Q6h prn, Tylenol, and Naproxen. Also DC'd with TLSO (thoracic lumbar spinal orthosis) back brace as needed for support. Today patient is lying calmly in bed, clearer verbalization than I have heard from her in a long time. Calm and cooperative, at baseline confusion but less fidgeting and less word salad. She was not ambulating. Nursing reports she is spending more time in bed, resting the spine. Vital signs stable, no s/s pain or discomfort. Social History - Living Situation Living arrangement: Assisted living Living Situation: With caregiver(s) Support System: Daughter/DPSHONA Cruz lives close by and works at a local school. The patient also has two sons. Medications/Allergies - Medications Home Medications: Ambulatory Orders Medication Instructions Recorded Confirmed Acetaminophen 500 mg PO Q4H PRN MDD APAP NTE 04/20/17 02/16/18 3000mg/24 hrs Aspirin 81 mg PO DAILY 04/20/17 02/16/18 Citalopram Hydrobromide 20 mg PO DAILY 04/20/17 02/16/18 [Citalopram HBr] Diclofenac Sodium [Voltaren] 100 gm TP BID PRN 04/20/17 02/16/18 Multivitamin [Multiple Vitamins] 1 ea PO DAILY 04/20/17 02/16/18 Naproxen Sodium 220 mg PO BID 04/20/17 02/16/18 Omeprazole 20 mg PO DAILY 04/20/17 02/16/18 Polyethylene Glycol 3350 [Miralax] 17 gm PO DAILY PRN 04/20/17 02/16/18 Acetaminophen [Arthritis Pain 1,300 mg PO BID MDD NTE 3000MG IN 06/29/17 02/16/18 Relief] 24 HOURS D-Mannose Capsule 2,000 mg PO DAILY 10/20/17 02/16/18 Senna [Senokot] 2 tab PO DAILY 10/20/17 02/16/18 Tramadol HCl 50 mg PO Q6H PRN #25 tablet 02/13/18 02/16/18 - Allergies Allergies/Adverse Reactions: Allergies Allergy/AdvReac Type Severity Reaction Status Date / Time No Known Drug Allergies Allergy Verified 02/13/18 19:54 Review of Systems - Constitutional Constitutional: reports: Weight loss (140.2 lbs 02/01/18. Formerly ranged from 142-148 lbs, and previous to that, range was 150-157 lbs in 2017 to April 2017) - Respiratory Respiratory: denies: Wheezing - Gastrointestinal Gastrointestinal: reports: Constipation (episodic; managed with bowel softeners). denies: Poor appetite - Genitourinary Genitourinary: reports: Incontinence - Musculoskeletal Musculoskeletal: denies: Assistive devices (doesn't like walkers or wheel chairs), Transfer issues - Neurological Neurological: reports: Memory problems, Other (word salad) - Other Findings Other Findings: Limited ROS due to dementia Physical Exam - Vital Signs Temperature: 97.4 F Pulse Rate: 75 Blood Pressure: 121/55 (wrist cuff) - Physical Exam General Appearance: positive: No acute distress, Alert Eyes Bilateral: positive: No lid inflammation, Conjunctivae nml, No scleral icterus ENT: positive: No signs of dehydration Neck: positive: No JVD, Trachea midline Cardiovascular: positive: Regular rate & rhythm, No murmur Respiratory: positive: No respiratory distress, Breath sounds nml Abdomen: positive: Non-tender, Soft Skin: positive: No symptoms Extremities: positive: Pedal edema (trace) Neurologic/Psychiatric: positive: Disoriented to person, Disoriented to place, Disoriented to time Palliative Care - POLST Patient has POLST: Yes POLST Status: DNR, Comfort Measures Performance Status: Ambulatory, self-transfers Partially appropriate responses to questions Improved clarity of speech and less word salad; improved agitation and less fidgetiness Cooperative and calm No s/s pain or discomfort - Palliative Care Discussion: Focus is comfort and quality of life and appropriately managing acute and chronic pain. Impression and Recommendations - Palliative Care Impression: 82-year-old woman with advanced dementia, 3 days ago sent to ED and diagnosed with compression fracture of T12. Sent home with pain meds and back brace. Patient appears comfortable and pain free. She is steadily losing weight, due to sporadic appetite secondary to her advanced dementia. Palliative care will continue to provide support and monitor for to hospice when appropriate. Recommendations/Counseling Done: UTIs: Continue D-Mannose as prophylaxis for E coli infections. Compression fracture of T12: Sent to ED on 02/13, xray confirmed fracture of T12. Continue routine naproxen and Tylenol (1300mg BID), voltaren gel as needed, and added tramadol 50mg Q6h PRN. Continue TLSO (thoracic lumbar spinal orthosis) as needed for support and comfort. Advanced dementia with depression: At baseline cognition with no behavioral issues. Speech today is clearer than normal, she responds appropriately to some questions.Continue citalopram. Constipation: At baseline, continue Miralax and Senna routine. Weight loss: Continues to lose weight, currently 140.2 lbs. Her formerly range was 142-148 lbs, and previously was 150-157 lbs back in 2017 up to April 2017. She has a sporadic appetite and often no interest in food. Start Ensure 1 can TID after meals Advanced care planning: Goal remains comfort care, quality of life and pain control. POLST is DNR and comfort care. Follow up as needed. Time Spent: 20 minutes were spent with more than 50% of the time spent on counseling and coordination of care.
== END 2018-02-16 11:41 | disposition home or self-care (01) ==
LOC: PC 11:40
PROVIDERS: ATTEND Nurse Practitioner
DX: Z51.5 Encounter for palliative care (principal); F03.90 Unspecified dementia, unspecified severity, without behavioral disturbance, psychotic disturbance, mood disturbance, and anxiety; R63.4 Abnormal weight loss; N39.0 Urinary tract infection, site not specified; M80.08XD Age-related osteoporosis with current pathological fracture, vertebra(e), subsequent encounter for fracture with routine healing; F32.9 Major depressive disorder, single episode, unspecified; R32 Unspecified urinary incontinence; K59.00 Constipation, unspecified; Z66 Do not resuscitate; R29.6 Repeated falls; Z87.891 Personal history of nicotine dependence

== ENCOUNTER 2018-04-27 12:40 | Outpatient (CLI) | payer MEDICARE, OTHER ==
--- NOTE | 2018-04-27 18:24 | CONSULTATION NOTE ---
Palliative Care Follow Up - Referral Referring Provider: Dr Andrew Ren Time of Visit: Wed04/27/2018. 12:40 - 12:55 Referral setting: Assisted living (Seen in home setting due to taxing and considerable effort required to leave the home due to limited mobility secondary to advanced dementia.) Referral Reason: Advanced dementia - Information Sources Records reviewed: RN notes reviewed, Previous records reviewed History/Review of Systems obtained from: Family, Nursing Exam limitations: Clinical condition (Advanced dementia; nonsensical verbalization) - History of Present Illness Update Brief HPI Update: -83-year-old woman with advanced dementia and word salad verbalization, in relatively good health without diagnoses for cardiovascular respiratory disease or diabetes. -Medical history: Degenerative disc disease of lumbar, h/o long-term steroid and long-term aspirin use, h/o smoking, h/o frequent falls, weight loss, h/o recurrent UTIs. She has a history of UTIs, improved since starting D-Mannose as a prophylaxis in July 2017. Most recently had T12 compression fracture January 2018. Patient is at baseline, nervous fidgeting with hands, flapping fingers, constantly busy, touches provider, also engages with provider, with eye contact and speaking. Speech is mostly nonsensical and word salad, but occasionally has a clear utterance, such as asking "What're you doing?" Staff reports no issues or concerns, pain is well controlled, patient has occasional falls. Patient is easily distracted and often not interested in food. Weight has slowly and steadily declined over time: 136.6 on 04/25/2018, and has been in mid 130s since February 2018. Was in mid-140s to 150 lbs in 2018. And was in the high-140s and into the 150s in 2017. So around 15 lbs lost since 2017. Spoke briefly with daughter to inform her that her mother was at her baseline, and pain is under control. She had no questions or concerns. Social History - Living Situation Living arrangement: Assisted living ([facility]) Living Situation: Alone, With caregiver(s) Support System: Daughter/VAN Huang lives close by and works at a local school. The patient also has two sons. Medications/Allergies - Medications Home Medications: Ambulatory Orders Medication Instructions Recorded Confirmed Acetaminophen 500 mg PO Q4H PRN MDD APAP NTE 04/20/17 04/27/18 3000mg/24 hrs Aspirin 81 mg PO DAILY 04/20/17 04/27/18 Citalopram Hydrobromide 20 mg PO DAILY 04/20/17 04/27/18 [Citalopram HBr] Diclofenac Sodium [Voltaren] 100 gm TP BID PRN 04/20/17 04/27/18 Multivitamin [Multiple Vitamins] 1 ea PO DAILY 04/20/17 04/27/18 Naproxen Sodium 220 mg PO BID 04/20/17 04/27/18 Omeprazole 20 mg PO DAILY 04/20/17 04/27/18 Polyethylene Glycol 3350 [Miralax] 17 gm PO DAILY PRN 04/20/17 04/27/18 Acetaminophen [Arthritis Pain 1,300 mg PO BID MDD NTE 3000MG IN 06/29/17 04/27/18 Relief] 24 HOURS D-Mannose Capsule 2,000 mg PO DAILY 10/20/17 04/27/18 Senna [Senokot] 2 tab PO DAILY 10/20/17 04/27/18 Tramadol HCl 50 mg PO Q6H PRN #25 tablet 02/13/18 04/27/18 - Allergies Allergies/Adverse Reactions: Allergies Allergy/AdvReac Type Severity Reaction Status Date / Time No Known Drug Allergies Allergy Verified 02/13/18 19:54 Review of Systems - Constitutional Constitutional: reports: Poor appetite, Weight loss (Weight has slowly and steadily declined over time: 136.6 on 04/25/2018, and has been in mid 130s since February 2018. Was in mid-140s to 150 lbs in 2018. And was in the high-140s and into the 150s in 2017. So around 15 lbs lost since 2017.) - Cardiovascular Cardiovascular: denies: Decr. exercise tolerance - Respiratory Respiratory: denies: SOB at rest - Gastrointestinal Gastrointestinal: reports: Poor appetite (distracts easily during meals). denies: Constipation - Genitourinary Genitourinary: reports: Incontinence - Musculoskeletal Musculoskeletal: denies: Assistive devices (doesn't like using walker or wheelchair), Transfer issues - Neurological Neurological: reports: Memory problems, Pre-existing deficit - Other Findings Other Findings: Limited ROS due to dementia. Physical Exam - Vital Signs Temperature: 96.9 F Pulse Rate: 73 O2 Saturation: 95 (room air) Blood Pressure: 92/61 (wrist cuff) - Physical Exam General Appearance: positive: No acute distress, Alert Eyes Bilateral: positive: No lid inflammation, Conjunctivae nml, No scleral icterus ENT: positive: No signs of dehydration Cardiovascular: positive: Regular rate & rhythm, No murmur Respiratory: positive: Chest non-tender, No respiratory distress, Breath sounds nml Abdomen: positive: Non-tender, Soft Skin: positive: No symptoms Extremities: positive: Nml appearance, No pedal edema Neurologic/Psychiatric: positive: Mood/affect nml, Disoriented to person, Disoriented to place, Disoriented to time, Unintelligible speech Palliative Care - POLST Patient has POLST: Yes POLST Status: DNR, Comfort Measures Performance Status: Ambulatory, self transfers Engages with GROUND INTELLIGENCE OFFICER, eye contact, at times is intelligible, but mostly utters word salad and nonsensical sounds Fidgety No s/s pain, discomfort - Palliative Care Discussion: Focus is on comfort care, not prolongation of life. Manage pain. Impression and Recommendations - Palliative Care Impression: 83-year-old woman with advanced dementia and word salad, at baseline cognition, able to ambulate, pain appears well controlled, slow weight loss of 15 lbs since 2017 due to sporadic appetite secondary to her advanced dementia. Palliative care provides support and monitoring for to hospice when appropriate. Recommendations/Counseling Done: UTIs: Improved with usage of D-Mannose as prophylaxis for E coli infections. Compression fracture of T12: Resolved. Chronic arthritis pain controlled with routine naproxen and Tylenol (1300mg BID), voltaren gel as needed, and tramadol 50mg Q6h PRN. Advanced dementia with depression: No changes or new concerns. Speech is word salad, patient makes attempts to interact personally and appropriately when addressed. On citalopram. Constipation: Controlled with Miralax and Senna routine. Weight loss: Slow, steady weight loss, about 15 lbs since 2017. Currently 136.6 on 04/25/18. Ranged from high 140s to low 150s in 2017. She has a sporadic appetite and easily distracted during meal. Receives supplemental protein shake with meal. Advanced care planning: Concentrate on comfort care, quality of life and pain control. POLST is DNR and comfort care. Updated daughter by telephone of patient's stable status. Follow up as needed. Time Spent: 15 minutes were spent with more than 50% of the time spent on counseling and coordination of care.
== END 2018-04-27 12:41 | disposition home or self-care (01) ==
LOC: PC 12:40
PROVIDERS: ATTEND Nurse Practitioner
DX: Z51.5 Encounter for palliative care (principal); F03.90 Unspecified dementia, unspecified severity, without behavioral disturbance, psychotic disturbance, mood disturbance, and anxiety; R63.4 Abnormal weight loss; N39.0 Urinary tract infection, site not specified; K59.00 Constipation, unspecified; Z66 Do not resuscitate; Z79.52 Long term (current) use of systemic steroids; Z79.82 Long term (current) use of aspirin; Z87.440 Personal history of urinary (tract) infections; Z87.891 Personal history of nicotine dependence; Z91.81 History of falling

== ENCOUNTER 2018-07-21 11:50 | Outpatient (CLI) | payer MEDICARE, OTHER ==
--- NOTE | 2018-07-21 17:00 | CONSULTATION NOTE ---
Palliative Care Follow Up - Referral Referring Provider: Dr Ren Time of Visit: Joycelyn 07/21/2018. 11:50 - 12:30 Referral setting: Assisted living Referral Reason: Furuncle on L waist - Information Sources Records reviewed: RN notes reviewed History/Review of Systems obtained from: Patient, Caregiver, Nursing Exam limitations: Clinical condition (Advanced dementia; nonsensical verbalization) - History of Present Illness Update Brief HPI Update: 83-year-old woman with advanced dementia and word salad verbalization, very slow decline, she is at her baseline with calm behaviors. She has a new furuncle/boil on left waist with no signs of pain or infection. -Medical history: Degenerative disc disease of lumbar, h/o long-term steroid and long-term aspirin use, h/o smoking, h/o frequent falls, weight loss, h/o recurrent UTIs. She has a history of UTIs, improved since starting D-Mannose as a prophylaxis in July 2017. Most recently had T12 compression fracture January 2018. Patient's is alert and sitting in wheelchair in dining room, prior to lunch. Patient's dementia has progressed to the point where she is calmer and steady, less fidgety and nervous than has been her baseline previously. Nursing staff reports that she is among the most stable and calm residents at the facility. She hasn't had recent UTIs. She is on D-Mannose for UTI prophylaxis. She has a boil/furuncle that has come to a head just today. Head is approx 1.5cm diameter, the area of redness is approx 3cm in diameter. Staff has reported the boil is painful; patient gives no signs of pain or discomfort at present. She is cooperative with the assessment, interacts with this STROKE BELT SANDER OPERATOR, makes occasional eye contact. Speech is word salad and repetitive sounds. Staff reports appetite is at baseline, usually eating 50-75%, occasionally eating nothing. Weight is slowly declining, 131.2 lbs today, down from being in the 140s last year. No constipation, skin is asymptomatic apart from the furuncle. Staff reports no signs of pain from T12 compression fracture from January. She is on routine Tylenol and naproxen. PRN Tramadol was used only twice this month. Spoke with daughter Nancy to update her about the boil and the treatment plan. She inquired about pain from the compression fracture, she was pleased to hear that there are no signs of pain. Social History - Living Situation Living arrangement: Assisted living ([facility]) Living Situation: With caregiver(s) Support System: Daughter/VAN Huang lives close by and works at a local school. The patient also has two sons. Medications/Allergies - Medications Home Medications: Ambulatory Orders Medication Instructions Recorded Confirmed Acetaminophen 500 mg PO Q4H PRN MDD APAP NTE 04/20/17 07/22/18 3000mg/24 hrs Aspirin 81 mg PO DAILY 04/20/17 07/22/18 Citalopram Hydrobromide 20 mg PO DAILY 04/20/17 07/22/18 [Citalopram HBr] Diclofenac Sodium [Voltaren] 100 gm TP BID PRN 04/20/17 07/22/18 Multivitamin [Multiple Vitamins] 1 ea PO DAILY 04/20/17 07/22/18 Naproxen Sodium 220 mg PO BID 04/20/17 07/22/18 Omeprazole 20 mg PO DAILY 04/20/17 07/22/18 Polyethylene Glycol 3350 [Miralax] 17 gm PO DAILY PRN 04/20/17 07/22/18 Acetaminophen [Arthritis Pain 1,300 mg PO BID MDD NTE 3000MG IN 06/29/17 07/22/18 Relief] 24 HOURS D-Mannose Capsule 2,000 mg PO DAILY 10/20/17 07/22/18 Senna [Senokot] 2 tab PO DAILY 10/20/17 07/22/18 Tramadol HCl 50 mg PO Q6H PRN #25 tablet 02/13/18 07/22/18 - Allergies Allergies/Adverse Reactions: Allergies Allergy/AdvReac Type Severity Reaction Status Date / Time No Known Drug Allergies Allergy Verified 02/13/18 19:54 Review of Systems - Constitutional Constitutional: reports: Weight loss (Slow weight loss, currently 131.2 lbs 07/20/18. Weight in 2018 ranged in the mid-140s. Earlier in 2019 it had dropped to 129 lbs.). denies: Poor appetite - Cardiovascular Cardiovascular: reports: Decr. exercise tolerance - Respiratory Respiratory: denies: Cough, SOB with exertion - Gastrointestinal Gastrointestinal: reports: Constipation - Genitourinary Genitourinary: reports: Incontinence - Musculoskeletal Musculoskeletal: reports: Assistive devices (still ambulatory, doesn't like devices), Transfer issues - Integumentary Integumentary: reports: Other (boil on L waist) - Neurological Neurological: reports: Memory problems, Pre-existing deficit - Psychiatric Psychiatric: denies: Anxiety, Aggitation, Behavior disturbances - Other Findings Other Findings: Limited ROS due to advanced dementia Physical Exam - Vital Signs Temperature: 96.7 F Pulse Rate: 75 O2 Saturation: 75 - Physical Exam General Appearance: positive: No acute distress, Alert Eyes Bilateral: positive: Normal inspection ENT: positive: No signs of dehydration Neck: positive: Trachea midline Cardiovascular: positive: Regular rate & rhythm, No murmur Respiratory: positive: Chest non-tender, No respiratory distress, Diminished throughout. negative: Wheezes, Rales, Rhonchi Skin: positive: Other (Boil/furuncle that has come to a head. Head is approx 1.5cm in diameter, area of redness is approx 3cm in diameter.) Extremities: positive: Pedal edema (trace) Neurologic/Psychiatric: positive: Mood/affect nml, Disoriented to person, Disoriented to place, Disoriented to time Palliative Care - POLST Patient has POLST: Yes POLST Status: DNR, Comfort Measures Pain: No pain, Comment (On routine Tylenol and naproxen. Used PRN tramadol only twice in June) Tiredness/Fatigue: Mild (1-3) Drowsiness/Sedation: None Depression: None Anxiety: None Anorexia: Mild (1-3), Weight loss (Currently 131 lbs from mid 140s in 2018.) Sleep: Sleeps well Constipation: No Performance Status: Wheelchair, and ambulation Non injury fall on 06/20 Calm, no agitation, no behaviors FAST 7B - Palliative Care Discussion: Goals remain to concentrate on quality of life, relief of pain, and comfort care. Impression and Recommendations - Palliative Care Impression: 83-year-old woman with advanced dementia and word salad verbalization, very slow decline, she is at her baseline with calm behaviors. She has a new furuncle/boil on left waist with no signs of pain or infection. Palliative care will continue to provide support and monitoring. Recommendations/Counseling Done: Furuncle, left waist: It has just come to a head today, and is presently intact. No s/s infection. Continue warm compresses twice daily. Clean gently with mild soap or antibacterial soap twice daily and apply triple antibiotic twice daily until it bursts and resolves. Notify STROKE BELT SANDER OPERATOR for s/s infection. Compression fracture of T12: No signs of pain with routine Tylenol 1300mg BID and routine naproxen 220mg BID. She has used tramadol 50mg PRN only twice this month. Advanced dementia with depression: At baseline, very calm, not fidgety as has been her baseline in the past. Nursing reports she is one of the most stable and calm residents in the facility. Continue citalopram. Constipation: Well controlled with Miralax and Senna routine. Weight loss: 131.2 lbs 07/20/18. She weighed in the mid-140s in 2018. Staff report most of the time she eats 50-75% of meals. Advanced care planning: No changes to goals: concentrate on comfort care, quality of life and pain control. Updated daughter by telephone of the boil, and that the patient is very stable. Follow up as needed. Time Spent: 40 minutes were spent with more than 50% of the time spent on counseling and coordination of care.
== END 2018-07-21 11:51 | disposition home or self-care (01) ==
LOC: PC 11:50
PROVIDERS: ATTEND Nurse Practitioner
DX: Z51.5 Encounter for palliative care (principal); F03.90 Unspecified dementia, unspecified severity, without behavioral disturbance, psychotic disturbance, mood disturbance, and anxiety; L02.424 Furuncle of left upper limb; R63.4 Abnormal weight loss; M47.816 Spondylosis without myelopathy or radiculopathy, lumbar region; R32 Unspecified urinary incontinence; K59.00 Constipation, unspecified; F32.9 Major depressive disorder, single episode, unspecified; R29.6 Repeated falls; Z66 Do not resuscitate; Z79.52 Long term (current) use of systemic steroids; Z79.82 Long term (current) use of aspirin; Z87.440 Personal history of urinary (tract) infections

== ENCOUNTER 2018-09-29 15:20 | Outpatient (CLI) | payer MEDICARE, OTHER ==
--- NOTE | 2018-09-29 18:18 | CONSULTATION NOTE ---
Palliative Care Follow Up - Referral Referring Provider: Dr Ren Time of Visit: Joycelyn 09/29/2018. 15:20 - 15:40 Referral setting: Assisted living ([facility]) Referral Reason: Advanced dementia - Information Sources Records reviewed: RN notes reviewed History/Review of Systems obtained from: Family, Nursing Exam limitations: Clinical condition (Advanced dementia, word salad) - History of Present Illness Update Brief HPI Update: 83-year-old woman with advanced dementia and word salad verbalization, very slow decline, she is at her baseline with calm behaviors. She has a new furuncle/boil on left waist with no signs of pain or infection. -Medical history: Degenerative disc disease of lumbar, h/o long-term steroid and long-term aspirin use, h/o smoking, h/o frequent falls, weight loss, h/o recurrent UTIs. She has a history of UTIs, none since D-Mannose 07/2017; T12 compression fracture 01/2018. Today patient is lying in bed, calm and appears comfortable, cooperative with exam and assessment. She was not fidgety as she has been at times in the past. Verbal at baseline, with gibberish, word salad. Nursing staff reports she is very stable, no signs/complaints of pain, weight stable at new lower baseline, 130.4 lbs most recently, no constipation. Spoke to daughter on phone to let her know about patient's stable status, she had no questions or concerns. Social History - Living Situation Living arrangement: Assisted living ([facility]) Living Situation: With caregiver(s) Support System: Daughter/VAN Huang lives close by and works at a local school. The patient also has two sons. Medications/Allergies - Medications Home Medications: Ambulatory Orders Medication Instructions Recorded Confirmed Acetaminophen 500 mg PO Q4H PRN MDD APAP NTE 04/20/17 10/01/18 3000mg/24 hrs Aspirin 81 mg PO DAILY 04/20/17 10/01/18 Citalopram Hydrobromide 20 mg PO DAILY 04/20/17 10/01/18 [Citalopram HBr] Diclofenac Sodium [Voltaren] 100 gm TP BID PRN 04/20/17 10/01/18 Multivitamin [Multiple Vitamins] 1 ea PO DAILY 04/20/17 10/01/18 Naproxen Sodium 220 mg PO BID 04/20/17 10/01/18 Omeprazole 20 mg PO DAILY 04/20/17 10/01/18 Polyethylene Glycol 3350 [Miralax] 17 gm PO DAILY PRN 04/20/17 10/01/18 Acetaminophen [Arthritis Pain 1,300 mg PO BID MDD NTE 3000MG IN 06/29/17 10/01/18 Relief] 24 HOURS D-Mannose Capsule 2,000 mg PO DAILY 10/20/17 10/01/18 Senna [Senokot] 2 tab PO DAILY 10/20/17 10/01/18 Tramadol HCl 50 mg PO Q6H PRN #25 tablet 02/13/18 10/01/18 - Allergies Allergies/Adverse Reactions: Allergies Allergy/AdvReac Type Severity Reaction Status Date / Time No Known Drug Allergies Allergy Verified 02/13/18 19:54 Review of Systems - Constitutional Constitutional: reports: Weight loss (Gradual weight loss over time. Was low 150s, then low 140s last year, has stabilized in the low 130ssince earlierthis year. Most recent weight 131.4 lbs 09/28/18.), Other (Less appetite than previ ously, but still eats) - Cardiovascular Cardiovascular: reports: Decr. exercise tolerance - Respiratory Respiratory: denies: Cough - Gastrointestinal Gastrointestinal: denies: Constipation - Genitourinary Genitourinary: reports: Incontinence - Musculoskeletal Musculoskeletal: reports: Limited range of motion, Assistive devices (unsteady, shuffling gait, walks with assistance, can't use walker) - Neurological Neurological: reports: Memory problems, Other - Psychiatric Psychiatric: denies: Behavior disturbances - Other Findings Other Findings: Limited ROS due to advanced dementia Physical Exam - Vital Signs Temperature: 96.0 F Pulse Rate: 51 O2 Saturation: 95 (room air) Blood Pressure: 101/75 (wrist cuff) - Physical Exam General Appearance: positive: No acute distress, Alert Eyes Bilateral: positive: Normal inspection ENT: positive: No signs of dehydration Neck: positive: Trachea midline Cardiovascular: positive: Regular rate & rhythm Respiratory: positive: Chest non-tender, No respiratory distress Abdomen: positive: Non-tender, Soft, Nml bowel sounds Skin: positive: No symptoms Extremities: positive: Nml appearance, No pedal edema Neurologic/Psychiatric: positive: Mood/affect nml, Disoriented to person, Disoriented to place, Disoriented to time, Unintelligible speech (gibberish, word salad) Palliative Care - POLST Patient has POLST: Yes POLST Status: DNR, Comfort Measures Pain: Comment (pain managed with routine Tylenol and naproxen) Tiredness/Fatigue: Mild (1-3) Depression: None Anxiety: Mild (1-3) Anorexia: Mild (1-3) Sleep: Sleeps well, Variable sleep pattern Performance Status: ambulates with assistance, unsteady on feet requires extensive assistance with all ADLs still able to feed self, has feeding assistance/redirection as needed Calm, no agitation, no behaviors at status quo FAST 7C - Palliative Care Discussion: Family's goals of care are to keep her comfortable and relieve pain. Impression and Recommendations - Palliative Care Impression: 83-year-old woman with advanced dementia and word salad, slowly declining over time, is at her cognitive and functional baseline, FAST 7B. Palliative care will continue to provide support and monitoring. Recommendations/Counseling Done: Furuncle, left waist: Resolved. Advanced dementia with depression: No changed, patient is calmer these days, less fidgety. Nursing reports she is one of the most stable and calm residents in the facility. Continue citalopram. Constipation: Well controlled with Miralax and Senna routine. Weight loss: 131.4 lbs on 09/28/18, stable at her new baseline which is the low 130s. Last year she was in low 140s, previous to that in the low 150s. Start taking her weights 2x/month. She weighed in the mid-140s in 2018. Advanced care planning: No changes to goals: concentrate on comfort care, quality of life and pain control. Spoke to daughter on the phone, reporting that the patient is very stable. She appreciates Palliative Care oversight, has no questions or concerns currently. Time Spent: 20 minutes were spent with more than 50% of the time spent on counseling and coordination of care.
== END 2018-09-29 15:21 | disposition home or self-care (01) ==
LOC: PC 15:20
PROVIDERS: ATTEND Nurse Practitioner
DX: Z51.5 Encounter for palliative care (principal); F03.90 Unspecified dementia, unspecified severity, without behavioral disturbance, psychotic disturbance, mood disturbance, and anxiety; F32.9 Major depressive disorder, single episode, unspecified; K59.00 Constipation, unspecified; R63.4 Abnormal weight loss; Z79.899 Other long term (current) drug therapy; Z66 Do not resuscitate

== ENCOUNTER 2019-01-05 14:58 | Outpatient (CLI) | payer MEDICARE, OTHER ==
--- NOTE | 2019-01-05 18:43 | CONSULTATION NOTE ---
Palliative Care Follow Up - Referral Referring Provider: Dr. Andrew Ren Time of Visit: 1130-12 Referral setting: Assisted living Referral Reason: Advanced Dementia - Information Sources Records reviewed: Previous records reviewed History/Review of Systems obtained from: Caregiver (clinical staff) Exam limitations: Clinical condition (patient with advanced dementia) - History of Present Illness Update Brief HPI Update: This is an 83-year-old woman with advanced dementia, no identified type, but would diagnosis Alzheimer's disease given her slow and progressive decline. She has no cardiac history, no history of stroke. Palliative care was contacted regarding patient's need for a tilt in space wheelchair. Patient is no longer ambulatory, can stand and pivot, but does slide down in the wheelchair, less able to maintain posture, leans to the right, is up for meals, but then often returns to bed. This is a mold insert changer the last several weeks. Staff reports she has been more sleepy, less responsive, no acute signs or symptoms of infection. She does have fluctuating days, today she is able to sit in the wheelchair, makes some eye contact, is somewhat fidgety but does allow some limited exam. She has word salad, she is incontinent of bowel and bladder, has not been reported to have any severe agitation, is sometimes resistant to care, but no significant neuropsychiatric behaviors. Patient's history is been somewhat benign, she did have a T12 compression fracture 01/2018, with functional decline after this. She also has a history of recurrent UTIs, but none since 07/2017, she has been maintained on d-mannose. She has had some slow progressive weight loss over the last 2 years of 15 to 20 pounds, but has remained stable in the last 6 months, her last weight 12/21/2018 132.4. She does have known degenerative disc disease of lumbar spine, with history of long-term steroid and aspirin use, and history of frequent falls. Social History - Living Situation Living arrangement: Assisted living Support System: Daughter Nancy is Pretty [employer], she does live in [place] and works nearby. She does report she sees her a couple times a month, though she has been sleeping more and less interactive the last few times she is checked in on her. Patient also has 2 sons. Medications/Allergies - Medications Home Medications: Ambulatory Orders Medication Instructions Recorded Confirmed Acetaminophen 500 mg PO Q4H PRN MDD APAP NTE 04/20/17 01/07/19 3000mg/24 hrs Aspirin 81 mg PO DAILY 04/20/17 01/07/19 Citalopram Hydrobromide 20 mg PO DAILY 04/20/17 01/07/19 [Citalopram HBr] Diclofenac Sodium [Voltaren] 100 gm TP BID PRN 04/20/17 01/07/19 Multivitamin [Multiple Vitamins] 1 ea PO DAILY 04/20/17 01/07/19 Naproxen Sodium 220 mg PO BID 04/20/17 01/07/19 Omeprazole 20 mg PO DAILY 04/20/17 01/07/19 Polyethylene Glycol 3350 [Miralax] 17 gm PO DAILY PRN 04/20/17 01/07/19 Acetaminophen [Arthritis Pain 1,300 mg PO BID MDD NTE 3000MG IN 06/29/17 01/07/19 Relief] 24 HOURS D-Mannose Capsule 2,000 mg PO DAILY 10/20/17 01/07/19 Senna [Senokot] 2 tab PO DAILY 10/20/17 01/07/19 Tramadol HCl 50 mg PO Q6H PRN #25 tablet 02/13/18 01/07/19 - Allergies Allergies/Adverse Reactions: Allergies Allergy/AdvReac Type Severity Reaction Status Date / Time No Known Drug Allergies Allergy Verified 02/13/18 19:54 Review of Systems - Constitutional Constitutional: reports: Fatigue, Weight stable - Respiratory Respiratory: denies: Cough - Gastrointestinal Gastrointestinal: reports: Other (flucutating intake). denies: Constipation - Genitourinary Genitourinary: reports: Incontinence - Musculoskeletal Musculoskeletal: reports: Back pain (hx), Stiffness, Muscle weakness, Transfer issues (pivot transfer; no longer ambulatory) - Neurological Neurological: reports: Memory problems, Other (word salad) - Psychiatric Psychiatric: reports: Anxiety (some fidgeting) - Hematologic/Lymphatic Hematologic/Lymphatic: denies: Recurrent infections (last infection 07/2017) - All Other Systems All Other Systems: reports: Other (llimited with dementia) Physical Exam - Vital Signs Temperature: 97.1 C Pulse Rate: 72 Respiratory Rate: 18 Blood Pressure: 112/72 - Physical Exam General Appearance: positive: No acute distress, Alert, Anxious Eyes Bilateral: positive: Conjunctivae nml ENT: positive: No signs of dehydration Neck: positive: Trachea midline Cardiovascular: positive: Regular rate & rhythm Respiratory: positive: Diminished in bases. negative: No respiratory distress, Wheezes, Rales, Rhonchi Abdomen: positive: Non-tender, Soft, Nml bowel sounds Skin: positive: Pallor, Pressure wound (reported no skin issues from staff) Extremities: positive: No pedal edema, Other (feet and hands cool to touch) Neurologic/Psychiatric: positive: Disoriented to person, Disoriented to place, Disoriented to time, Weakness, Flat affect, Other (word salad though tried to engage) Palliative Care - POLST Patient has POLST: Yes POLST Status: DNR, Comfort Measures Pain: Comment (patient with known T12 fx 01/2019 and hx of back pain; unclear if pain worsens when sitting upright given behaviors to slip down; would benefit from positioning in tilt position for pain relief as well) Drowsiness/Sedation: Comment (staff and daughter reporting sleeping more; more difficult at times to arouse) Constipation: Comment (bowel log show intermittent but regular bms) Performance Status: Patient has had a decline in functional status, had been ambulatory previously, now ambulates few steps and pivot only. Patient is wheelchair-bound, does slip down and difficulty position, does appear to have difficulty with leading to the right. There are concerns for safety. Patient is dependent for all ADLs, is mostly in assisted feed, no signs or symptoms of choking at this point. Daughter aware of functional decline as well. - Palliative Care Discussion: 01/06 Did speak with daughter, regarding goals of care. 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 Did review signs and symptoms of patient's decline, expected ongoing trajectory. Reasoning and rationale for moving forward on the tilt in space, she is in agreement. If it becomes more urgent, we are to contact her as she may be willing to rent short-term. Reviewed POLST, is DNA R and comfort measures, does want to avoid any hospitalization and unless for ease of suffering or an acute trauma event unable to be managed in the current setting, we did discuss also treatment of infections in the trajectory of her disease process, she would not want anything heroic, would like to weigh benefits and burdens of these decisions as they come up. Her goal is to have her mother be comfortable, not to prolong suffering, and to be included in the decision making process. Impression and Recommendations - Palliative Care Impression: This is an 83-year-old woman with advanced Alzheimer's dementia, with continued progressive decline, with increasing loss of functional status. She does present as a FAST 7C. Patient needing increased truncal support, now wheelchair- bound, would benefit from tilt in space. Will order PT/OT for evaluation. Patient does not present with any high symptom burden, nor neuropsychiatric behaviors. Palliative care to continue provide support and will follow up with [id number] after evaluation. Recommendations/Counseling Done: 1. Muscle weakness. This can be attributed to patient's progressive disease process, patient needing increased support for truncal instability, safety, and would expect eventually assistance needed for positioning for aspiration precautions. Patient is appropriate for tilt in space wheelchair, will order PT/OT evaluation, with provided information will come back and provide [id number]. Spoke with Rehab coordinator/ DME provider regarding process for ordering tilt in space needed evaluations. 2. Dementia without behavioral disturbances. Patient does have mild anxiety, no behavioral disturbances that are impacting treatment or care plan. Staff are appropriately responding to patient's fluctuations and alertness and care needs. We will continue citalopram for now, as patient most likely is still benefiting. 3. Constipation. Well controlled with scheduled MiraLAX and senna. 4. Advanced care planning. Follow-up with daughter to review and solidify goals of care. Patient has had further decline, daughter is aware, discussed and counseled on upcoming trajectory and decision making support available through palliative care. Time Spent: 30 minutes with greater than 50% of this done in counseling regarding coordination of care for tilt in space, processed her referral, coordination of care with staff and anticipatory guidance with daughter.
== END 2019-01-05 14:59 | disposition home or self-care (01) ==
LOC: PC 14:58
PROVIDERS: ATTEND Nurse Practitioner Adult Health
DX: Z51.5 Encounter for palliative care (principal); G30.9 Alzheimer's disease, unspecified; F02.80 Dementia in other diseases classified elsewhere, unspecified severity, without behavioral disturbance, psychotic disturbance, mood disturbance, and anxiety; K59.00 Constipation, unspecified; Z79.899 Other long term (current) drug therapy; Z79.82 Long term (current) use of aspirin; Z99.3 Dependence on wheelchair; Z66 Do not resuscitate

== ENCOUNTER 2019-03-06 15:30 | Outpatient (CLI) | payer MEDICARE, OTHER ==
--- NOTE | 2019-03-06 16:04 | CONSULTATION NOTE ---
Palliative Care Follow Up - Referral Referring Provider: Dr. Andrew Ren Time of Visit: [id number] Referral setting: Assisted living ([facility]) Referral Reason: Dementia/Generalized weakness - Information Sources Records reviewed: Previous records reviewed History/Review of Systems obtained from: Friend (clinical staff), Caregiver (reviewed recent changes with Adriana, one of staff) Exam limitations: Clinical condition (Advanced dementia) - History of Present Illness Update Brief HPI Update: This is an 84-year-old female with advanced dementia, with a slow and progressive decline. She is seen in evaluation today for a face to face visit for obtainment of a tilt in space wheelchair. Patient is no longer ambulatory, requires a two-person assistance to get into her wheelchair. She has difficulty maintaining her posture, will lean to the right side, despite the use of an abdominal posture support. Staff reports that she will be up for meals and it is hit or miss based on her oral intake. After meals she typically wishes to return to bed. She chooses not to engage in the activities held at the facility. Today she is seen resting in her bed on her left side, easily arousable, and will make eye contact, but did not wish to engage further. She was much more alert and engaged after she was assisted by two staff members into her wheelchair with a stand and pivot. She offered no assistance with transferring. No recent reports of agitation from staff. No reports of skin breakdown. 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 Social History - Living Situation Living arrangement: Assisted living Support System: Resides at [facility]. Daughter, Nancy is DPOA who lives in [place]. Patient also has 2 sons. Medications/Allergies - Medications Home Medications: Ambulatory Orders Medication Instructions Recorded Confirmed Acetaminophen 500 mg PO Q4H PRN MDD APAP NTE 04/20/17 01/07/19 3000mg/24 hrs Aspirin 81 mg PO DAILY 04/20/17 01/07/19 Citalopram Hydrobromide 20 mg PO DAILY 04/20/17 01/07/19 [Citalopram HBr] Diclofenac Sodium [Voltaren] 100 gm TP BID PRN 04/20/17 01/07/19 Multivitamin [Multiple Vitamins] 1 ea PO DAILY 04/20/17 01/07/19 Naproxen Sodium 220 mg PO BID 04/20/17 01/07/19 Omeprazole 20 mg PO DAILY 04/20/17 01/07/19 polyethylene glycoL 3350 [Miralax] 17 gm PO DAILY PRN 04/20/17 01/07/19 Acetaminophen [Arthritis Pain 1,300 mg PO BID MDD NTE 3000MG IN 06/29/17 01/07/19 Relief] 24 HOURS D-Mannose Capsule 2,000 mg PO DAILY 10/20/17 01/07/19 Senna [Senokot] 2 tab PO DAILY 10/20/17 01/07/19 Tramadol HCl 50 mg PO Q6H PRN #25 tablet 02/13/18 01/07/19 - Allergies Allergies/Adverse Reactions: Allergies Allergy/AdvReac Type Severity Reaction Status Date / Time No Known Drug Allergies Allergy Verified 02/13/18 19:54 Review of Systems - Constitutional Constitutional: reports: Fatigue, Other (weight 02/23 143lbs and 142.8lbs with no noted weight loss.). denies: Fever - Cardiovascular Cardiovascular: denies: Chest pain, Edema - Respiratory Respiratory: denies: Cough - Gastrointestinal Gastrointestinal: reports: Other (flucuating oral intake). denies: Constipation, Diarrhea, Vomiting - Genitourinary Genitourinary: reports: Incontinence - Musculoskeletal Musculoskeletal: reports: Back pain (history of back pain), Stiffness, Muscle weakness, Assistive devices (wheelchair bound), Transfer issues (pivot transfer and 2 person assistance). denies: Joint swelling - Integumentary Integumentary: denies: Rash - Neurological Neurological: reports: General weakness, Memory problems (Dementia) - Hematologic/Lymphatic Hematologic/Lymphatic: denies: Bruising - All Other Systems All Other Systems: reports: Other (ROS is limited as chris is a poor historian due to dementia) Palliative Care - POLST Patient has POLST: Yes POLST Status: DNR, Comfort Measures Pain: Pain unchanged (Pain denies pain on evaluation today, but poor historian due to dementia. She has a history of osteoarthritis presently controlled) Drowsiness/Sedation: Comment (staff reports that patient is sleeping more throughout the day and chooses to return to her room after meals) Constipation: Intermittent constipation (bowel log demonstrates intermittent constipation but regualar bowel movements) Performance Status: Patient has had a slow steady decline in functional status and is no longer ambulatory, is wheelchair bound and depdent for all ADLs. Staff reports that they assist with feeding with no coughing note during meals. She also has d ifficulty remaining upright and will often lean to her right side. - Palliative Care Discussion: Patient is having difficulty remaining in an upright posture in her wheelchair, is sleeping more with no noted weight loss and requires assistance with feeding. A tilt in space wheelchair would improve the patient's positioning, support, and transportation for the patient to participate in activities as well as reduce fall risk and skin breakdown. Goals remain to focus on comfort and quality of life issues with palliative care to continue to provide support until appropriate for hospice. Impression and Recommendations - Palliative Care Impression: This is an 84-year-old female with advanced dementia, with a very slow decline, without any behavioral disturbances with increasing loss of functional status. She is wheelchair bound with a need for increased truncal support and would bene fit from a titlt in space wheelchair. Physical therapy has evaluated the patient for the wheelchair and Palliative care is providing the face to face as well as a review of medications and ongoing anticipatory guidance. Recommendations/Counseling Done: 1. Generalized Weakness. Secondary to disease state of dementia. Patient is nonambulatory and is wheelchair dependent and is a full person assist for transfers with poor truncal stability. She would benefit from a tilt in space wheelchair with a face to face provided as noted below. 2. Dementia without behavioral disturbances. Chronic. Progressive. Supportive Care. Fall and Aspiration precautions. No behavioral concerns reported by staff. A gradual decline is expected. Continue citalopram as ordered. 3. Osteoarthritis. Controlled without reports of pain. No longer ambulatory. Continue arthritis 650mg two tablets BID, naproxen 220mg BID with PPI protection as scheduled for management of pain. Upon review of MAR there has not been any PRN acetaminophen, tramadol or voltaren gel administered. Continue to monitor and adjust medication regimen as needed. 3. Advanced Care Planning. POLST is DNR and comfort care with focus on quality of life. Palliative care to continue to provide support for patient and family as it is not feasible for the patient to leave their present setting. Face to Face: Patient requires a tilt in space wheelchair as she is no longer ambulatory and dependent for all transfers. She is a two person assist for all mobility tasks. She is unable to reposition in bed or in the wheelchair and requires repositioning by staff. She is wheelchair bound and unable to self-propel. She has limited truncal support. She requires a tilt in space wheelchair for truncal stability, reducing fall risk, reduction of risk of skin breakdown and to aid in improving the patient's ADLs. Time Spent: Total time spent 30 with greater than 50% of time spent in care coordination with clinical staff for face to face evaluation, review of medications, and anticipatory guidance.
== END 2019-03-06 15:31 | disposition home or self-care (01) ==
LOC: PC 15:30
PROVIDERS: ATTEND Nurse Practitioner Family
DX: Z51.5 Encounter for palliative care (principal); R53.1 Weakness; F03.90 Unspecified dementia, unspecified severity, without behavioral disturbance, psychotic disturbance, mood disturbance, and anxiety; M19.90 Unspecified osteoarthritis, unspecified site; Z79.1 Long term (current) use of non-steroidal anti-inflammatories (NSAID); Z79.899 Other long term (current) drug therapy; Z99.3 Dependence on wheelchair; Z66 Do not resuscitate

== ENCOUNTER 2019-04-04 10:40 | Outpatient (CLI) | payer MEDICARE, OTHER ==
--- NOTE | 2019-04-04 15:19 | CONSULTATION NOTE ---
Palliative Care Follow Up - Referral Referring Provider: Dr. Andrew Ren Time of Visit: 2329-5351 Referral setting: Assisted living Referral Reason: Dementia - Information Sources Records reviewed: Previous records reviewed History/Review of Systems obtained from: Family (daughter/VAN Cruz via phonecall with patient present) Exam limitations: Clinical condition (Advanced dementia) - History of Present Illness Update Brief HPI Update: This is an 84-year-old woman with advanced dementia who has had a slow and progressive decline. Staff report yesterday that she had a fever due to a viral illness that is going around the facility. However, today she is afebrile and is without additional symptomatology such as cough or diarrhea. She was last seen and evaluated for a tilt in space wheelchair as she is no longer ambulatory and requires two-person assistance to get into her wheelchair. The tilt in sp clary wheelchair is still pending at this time. Today she is alert, out of bed in her recliner and quite talkative with a word salad. She remains incontinent of bowel and bladder. No additional behavioral concerns reported by the staff. Her daughter/Nancy TORRES does not offer any additional concerns. There has been a steady increase in weight over the past several months. Weight in November 2018 was 132.4 pounds and is presently 144.8 pounds. No coughing is noted during meals. Past medical history of recurrent UTIs, degenerative disc disease of lumbar spine, with a history of long-term steroid and aspirin use, and history of frequent falls. Social History - Living Situation Living arrangement: Assisted living Support System: Patient has a daughter who is her Nancy TORRES. She also has 2 sons. The patient previously worked as a seamstress and was quite meticulous according to the facility staff in regards to her previous participation in activities. Medications/Allergies - Medications Home Medications: Ambulatory Orders Medication Instructions Recorded Confirmed Acetaminophen 500 mg PO Q4H PRN MDD APAP NTE 04/20/17 01/07/19 3000mg/24 hrs Aspirin 81 mg PO DAILY 04/20/17 01/07/19 Citalopram Hydrobromide 20 mg PO DAILY 04/20/17 01/07/19 [Citalopram HBr] Diclofenac Sodium [Voltaren] 100 gm TP BID PRN 04/20/17 01/07/19 Naproxen Sodium 220 mg PO QPM 04/20/17 01/07/19 Omeprazole 20 mg PO DAILY 04/20/17 01/07/19 polyethylene glycoL 3350 [Miralax] 17 gm PO DAILY PRN 04/20/17 01/07/19 Acetaminophen [Arthritis Pain 1,300 mg PO BID MDD NTE 3000MG IN 06/29/17 01/07/19 Relief] 24 HOURS D-Mannose Capsule 2,000 mg PO DAILY 10/20/17 01/07/19 Senna [Senokot] 2 tab PO DAILY 10/20/17 01/07/19 Tramadol HCl 50 mg PO Q6H PRN #25 tablet 02/13/18 01/07/19 - Allergies Allergies/Adverse Reactions: Allergies Allergy/AdvReac Type Severity Reaction Status Date / Time strawberry Allergy Unknown Verified 04/04/19 15:27 Review of Systems - Constitutional Constitutional: reports: Fatigue, Weight gain (noted weight gain of appx 12lb since November 2018) - Ears, Nose & Throat Ears, Nose & Throat: denies: Dry mouth - Cardiovascular Cardiovascular: denies: Chest pain, Edema - Respiratory Respiratory: denies: Cough - Gastrointestinal Gastrointestinal: reports: Other (flucuating intake). denies: Abdominal disten tion, Constipation, Diarrhea - Genitourinary Genitourinary: reports: Incontinence - Musculoskeletal Musculoskeletal: reports: Back pain (history of back pain), Stiffness, Assistive devices (wheelchair bound), Transfer issues. denies: Joint pain, Joint swelling - Integumentary Integumentary: denies: Rash - Neurological Neurological: reports: General weakness, Memory problems, Other (+word salad) - Hematologic/Lymphatic Hematologic/Lymphatic: reports: Recurrent infections (h/o of UTIs with last UTI 07/2017) - All Other Systems All Other Systems: reports: Other (ROS limited due to advanced dementia) Physical Exam - Vital Signs Temperature: 36.8 C Pulse Rate: 82 O2 Saturation: 97 (on RA at rest) Blood Pressure: 100/70 - Physical Exam General Appearance: positive: No acute distress, Alert, Other (OOB in recliner) Eyes Bilateral: positive: Normal inspection ENT: positive: Other (+MMM) Neck: positive: Thyroid nml, No JVD, Trachea midline, Other (no LAD) Cardiovascular: positive: Regular rate & rhythm, No murmur, No gallop Respiratory: positive: Chest non-tender, No respiratory distress, Breath sounds nml Abdomen: positive: Non-tender, Soft, Nml bowel sounds. negative: Guarding, Distended Skin: positive: Other (visible skin intact) Extremities: positive: Non-tender, Other (moves all extremities). negative: Joint swelling Neurologic/Psychiatric: positive: Disoriented to person, Disoriented to place, Disoriented to time, Weakness, Other (very engaged today with word salad and use of her hands when speaking) Palliative Care - POLST Patient has POLST: Yes POLST Status: DNR, Comfort Measures Pain: No pain (history of back pain and osteoarthritis) Sleep: Sleeps well Constipation: No Performance Status: Patient has had a slow and steady decline in functional status and is no longer ambulatory. She is wheelchair-bound and dependent for all ADLs. Staff continue to assist with feedings. Staff deny any coughing during meals. She is incontinent of bowel and bladder. FAST 7C - Palliative Care Discussion: Patient has had a slow and steady decline in functional status and her cognitive status remains with advanced dementia. She has had an increase in weight and requires assistance with feeding. A tilt in space wheelchair is pending to assist with the patient's positioning, support, and transportation for participation in activities as well as reduction of falls and skin breakdown. Reviewed with patient's daughter/D Nancy PAL, that goal of care is to focus on comfort and quality of life issues. Daughter is in agreement in reduction of pill burden. Impression and Recommendations - Palliative Care Impression: This is an 84-year-old woman with a history of advanced dementia with a very slow functional and cognitive decline without any behavioral disturbances. She is presently wheelchair-bound. She is a fast 7C. Goal is to focus on comfort and quality of life. Palliative care to pertain you to provide symptom management and anticipatory guidance. Recommendations/Counseling Done: 1. Dementia without behavioral disturbances. Chronic. Progressive. Supportive care. Fall precautions. No behavioral concerns reported by staff or by daughter/Pretty PAL. Tilt in space wheelchair is pending with paperwork submitted to appropriate agency. Gradual decline as expected. Continue citalopram as ordered. 2 osteoarthritis. Controlled without reports of pain. No longer ambulatory. Discussed with daughter regarding reduction of pill burden and as patient is no longer ambulatory will proceed with a trial of reduction of naproxen to 200 mg once in the evening and if successful without noted pain will discontinue naproxen. Continue arthritis acetaminophen 650 mg 2 tablets twice daily. Continue PPI protection as scheduled. Continue as needed Voltaren gel and tramadol. 28 March she has been administered PRN pain medications twice. 3.History of UTI. No recent occurrence. Continue D mannose for UTI prophylaxis. 4. Weight gain. Multifactorial. Due to sedentary lifestyle and wheelchair bound status. Continue to monitor weight trend. No further interventions at this time. 5. Advance care planning. Pulsed is DNR and comfort care with focus on quality of life. Reviewed with daughter/D Nancy PAL that goal is to continue to focus on comfort. Discontinue multivitamin to reduce pill burden. Time Spent: Total time spent 20 minutes with greater than 50% of this spent in counseling and coordination of care with daughter/MISHELSHONA Cruz as well as clinical staff, medication reconciliation, review of goals of care, review of pain and symptom management and anticipatory guidance. Disclaimer: The chart note was formulated using voice recognition technology and unfortunately sound alike errors may occur.
== END 2019-04-04 10:41 | disposition home or self-care (01) ==
LOC: PC 10:40
PROVIDERS: ATTEND Nurse Practitioner Family
DX: Z51.5 Encounter for palliative care (principal); F03.90 Unspecified dementia, unspecified severity, without behavioral disturbance, psychotic disturbance, mood disturbance, and anxiety; R53.1 Weakness; R63.5 Abnormal weight gain; M19.90 Unspecified osteoarthritis, unspecified site; Z79.899 Other long term (current) drug therapy; Z79.82 Long term (current) use of aspirin; Z99.3 Dependence on wheelchair; Z87.440 Personal history of urinary (tract) infections; Z66 Do not resuscitate

== ENCOUNTER 2019-06-01 17:45 | Outpatient (CLI) | payer MEDICARE, OTHER ==
--- NOTE | 2019-06-01 17:52 | CONSULTATION NOTE ---
Palliative Care Follow Up - Referral Referring Provider: Dr. Andrew Ren Time of Visit: 0460-2301 Referral setting: Assisted living Referral Reason: Demenita with behavioral disturbances/Low back pain - Information Sources Records reviewed: Previous records reviewed History/Review of Systems obtained from: Caregiver, Nursing Exam limitations: Clinical condition (Advanced dementia) - History of Present Illness Update Brief HPI Update: This is an 84-year-old woman with advanced dementia who has had a slow and pr ogressive decline.The patient is no longer ambulatory and has a history of frequent falls. Her cognitive declined began in appx 2010. A tilt in space wheelchair was obtained for her this year and in the last few months since its use it has greatly reduced her number of falls. It is also assisted in allowing the patient to maintain her posture as she typically leans to the right and she is able to engage more in activities in the common area as well as assist with meals. The patient had a fall on 05/29 where she was found lying on her safety mat next to her bed with no known injuries. And again she had an unwitnessed fall on to her safety mat next to her bed on with no known injury. The patient has a history of recurrent UTIs but has not had 1 since 07/2017. She is maintained on d-mannose supplementation for UTI prophylaxis. The patient has a history of lower back pain including a history of a T12 compression fracture in 01/2018. Her naproxen dosage has been decreased since l ast evaluation given the patient is no longer ambulatory and has had a reduction in pain. Staff also noted since obtaining the tilt in space wheelchair she appears more comfortable and has no longer displaying any noted facial grimaces indicative of pain. Her weight remains stable at 142.8lb. She has been around 140lb since 12/2018. No coughing is reported during meals. Patient has a past medical history significant for dementia, osteoarthritis, depression, lower back pain, recurrent UTIs, degenerative disc disease of the lumbar spine, a history of long-term steroid and aspirin use, and a history of frequent falls. Social History - Living Situation Living arrangement: Assisted living Support System: The patient resides at [facility]. Her daughter, Nancy is her D POA ([phone] (. Nancy resides in [place] and works in the [employer] system nearby. The patient also has 2 sons. 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 The patient relocated to [facility] in 2010. Medications/Allergies - Medications Home Medications: Ambulatory Orders Medication Instructions Recorded Confirmed Acetaminophen 500 mg PO Q4H PRN MDD APAP NTE 04/20/17 06/01/19 3000mg/24 hrs Aspirin 81 mg PO DAILY 04/20/17 06/01/19 Citalopram Hydrobromide 20 mg PO DAILY 04/20/17 06/01/19 [Citalopram HBr] Diclofenac Sodium [Voltaren] 100 gm TP BID PRN 04/20/17 06/01/19 Omeprazole 20 mg PO DAILY 04/20/17 06/01/19 polyethylene glycoL 3350 [Miralax] 17 gm PO DAILY PRN 04/20/17 06/01/19 Acetaminophen [Arthritis Pain 1,300 mg PO BID MDD NTE 3000MG IN 06/29/17 06/01/19 Relief] 24 HOURS D-Mannose Capsule 2,000 mg PO DAILY 10/20/17 06/01/19 Senna [Senokot] 2 tab PO DAILY 10/20/17 06/01/19 Tramadol HCl 50 mg PO Q6H PRN #25 tablet 02/13/18 06/01/19 - Allergies Allergies/Adverse Reactions: Allergies Allergy/AdvReac Type Severity Reaction Status Date / Time strawberry Allergy Unknown Verified 04/04/19 15:27 Review of Systems - Constitutional Constitutional: reports: Weight stable. denies: Fever, Chills - Eyes Eyes: denies: Corrective lenses - Ears, Nose & Throat Ears, Nose & Throat: denies: Dry mouth - Cardiovascular Cardiovascular: denies: Chest pain, Edema - Respiratory Respiratory: denies: Cough, Wheezing - Gastrointestinal Gastrointestinal: reports: Good appetite. denies: Abdominal pain, Constipation, Diarrhea, Vomiting - Genitourinary Genitourinary: reports: Incontinence. denies: Hematuria - Musculoskeletal Musculoskeletal: reports: Back pain, Muscle weakness, Assistive devices. denies: Joint swelling - Integumentary Integumentary: denies: Rash - Neurological Neurological: reports: General weakness, Memory problems - Psychiatric Psychiatric: reports: Depression - Hematologic/Lymphatic Hematologic/Lymphatic: reports: Recurrent infections (history of UTIs, not present since 2018) - All Other Systems All Other Systems: reports: Reviewed and negative (ROS limited as patient is a poor historian due to dementia. ROS obtained from caregivers and nursing staff at [facility].) Physical Exam - Vital Signs Temperature: 36.7 C Pulse Rate: 77 O2 Saturation: 97 (on RA at rest) Blood Pressure: 119/68 (left wrist cuff) - Physical Exam General Appearance: positive: No acute distress, Alert, Other (OOB in tilt in space wheelchair with slight lean to right side) Eyes Bilateral: positive: Normal inspection ENT: positive: No signs of dehydration Neck: positive: No JVD, Trachea midline Cardiovascular: positive: Regular rate & rhythm, No murmur Respiratory: positive: No respiratory distress, Breath sounds nml. negative: Rales Abdomen: positive: Non-tender, Soft, Nml bowel sounds, Other (bladder nondistended). negative: Distended Skin: positive: No symptoms Extremities: positive: Other (move all extremities). negative: Pedal edema, Joint swelling Neurologic/Psychiatric: positive: Disoriented to person, Disoriented to place, Disoriented to time, Unintelligible speech (world salad), Other (Engaged with [employer] book and turning pages; touching this provider and using her hands to communicate) Palliative Care - POLST Patient has POLST: Yes POLST Status: DNR, Comfort Measures Pain: No pain (history of lower back pain and osteoarthritis) Anorexia: None Sleep: Sleeps well Constipation: No, Managed Performance Status: Patient has had a slow and steady decline in functional status and is no longer ambulatory.She is able to stand and pivot. She has difficulty maintaining her posture and leans to the right in the tilt and space assistance with her truncal stability.She is wheelchair-bound dependent for all ADLs. Staff assist with mealtime feedings. No noted coughing during meals. She is incontinent of bowel and bladder. FAS T7C - Palliative Care Discussion: The patient has as a slow and steady decline in functional and cognitive status due to advanced dementia. Her weight overall remains stable and she continues to require assistance with feeding. The tilt in space wheelchair has afforded the patient improved comfort and quality of life. The tilt in space wheelchair is assisting with her truncal stability, allowing her to remain in the common area and interacting for longer periods of time due to less discomfort, and is assisting in the safety during meals. Staff deny any noted body cues but the patient is having increased pain due to her osteoarthritis or lower back pain since the arrival of her home tilt in space wheelchair. 1 goal is to reduce the patient's pill burden and during last evaluation 1 of her scheduled doses of naproxen was discontinued. The patient continues to seem to be comfortable without any noted distress. During conversation today with the patient's daughter/D KAE Cruz via phone she relays that the goal of care is to remain with a focus on comfort and quality of life issues. It has been difficult for the patient's daughter, as she has been unable to visit due to the coronavirus pandemic and the facility not allowing visitors. Nancy is looking forward to when the restrictions are no longer in place so that she and her family can visit for frequent short visits as this is optimal as the patient has a poor attention span. The patient's daughter has elected not to use Skype as she felt that it would be too confusing for the patient. At the end of the visit today with this P[employer] Nancy was able to speak to the patient on the phone and it was quite visible at the patient recognized her daughter's voice and demonstrated delight by happily tapping on the table. Impression and Recommendations - Palliative Care Impression: This is a pleasant 84-year-old female with a history of advanced dementia, likely Alzheimer's in origin, with a very slow, functional and cognitive decline without any behavioral disturbances. She is wheelchair-bound. She is a FAS T7 C. She has had improvement in her quality of life and comfort since obtainment of a tilt in space wheelchair. Goal is to focus on comfort and quality of life. Palliative care to continue to provide support and on symptom management and anticipatory guidance. Recommendations/Counseling Done: 1.Generalized weakness. Secondary to disease state of dementia. Patient is nonambulatory and is wheelchair dependent and a 4 person assist for transfers with poor truncal stability. She has had improvement with her overall stability and comfort since the initiation of the tilt in space wheelchair. She is also had a reduction in falls. 2. Dementia without behavioral disturbances. Likely Alzheimer's dementia as no history of cardiovascular disease. Chronic. Progressive. Supportive care. Fall precautions. No behavioral concerns reported by staff. Continue citalopram as ordered. Given the patient's advanced age gradual decline as expected. 3. Osteoarthritis. Controlled without reports of pain nor noted pain by staff. No longer ambulatory. Discontinue naproxen dosage in the evening. Continue arthritis acetaminophen 650 mg 2 tablets twice daily. Continue as needed Voltaren gel and tramadol for pain. 4. Low back pain with history of T12 compression fracture. Improved truncal stability with tilt in space wheelchair. No evidence or reports of increased pain with new wheelchair. Initiate IcyHot patch to lower back to be applied at 8 AM and remove at 8 PM for pain. Continue acetaminophen arthritis 650 mg 2 tablets twice daily. Continue to monitor and adjust pain regiment as needed. 5. History of UTIs. No recent occurrence. Continue d-mannose supplementation for UTI prophylaxis. 6. Frequent falls. Fall precautions. Falls unavoidable due to dementia. 7. Care planning. POLST is DNR with comfort care focus. Daughter/Nancy TORRES wishes to have a focus on comfort and quality of life. Time Spent: CPT 38720 Plan of care reviewed with daughter/D KAE Cruz via phone with questions answered and addressed. Daughter is in agreement with plan of care. Also reviewed plan of care with nursing staff at [facility] memory unit. Disclaimer: The chart note was formulated using voice recognition technology and unfortunately sound alike errors may occur.
== END 2019-06-01 17:46 | disposition home or self-care (01) ==
LOC: PC 17:45
PROVIDERS: ATTEND Nurse Practitioner Family
DX: Z51.5 Encounter for palliative care (principal); F03.90 Unspecified dementia, unspecified severity, without behavioral disturbance, psychotic disturbance, mood disturbance, and anxiety; R53.1 Weakness; M51.36 Other intervertebral disc degeneration, lumbar region; R32 Unspecified urinary incontinence; M19.90 Unspecified osteoarthritis, unspecified site; K59.00 Constipation, unspecified; Z79.899 Other long term (current) drug therapy; Z99.3 Dependence on wheelchair; Z91.81 History of falling; Z87.440 Personal history of urinary (tract) infections; Z87.311 Personal history of (healed) other pathological fracture; Z66 Do not resuscitate

== ENCOUNTER 2019-08-14 14:20 | Outpatient (CLI) | payer MEDICARE, OTHER ==
--- NOTE | 2019-08-14 17:04 | CONSULTATION NOTE ---
Palliative Care Follow Up - Referral Referring Provider: Dr. Andrew Ren Time of Visit: [id number] Referral setting: Assisted living Referral Reason: Dementia with behavioral disturbances - Information Sources Records reviewed: Previous records reviewed History/Review of Systems obtained from: Caregiver, Nursing Exam limitations: Clinical condition (Advanced dementia) - History of Present Illness Update Brief HPI Update: This is an 84-year-old woman with advanced dementia who has had a slow and progressive decline who has presently stabilized. She is seen and evaluated today at [facility] in follow-up. The patient is no longer ambulatory and has had a previous history of frequent falls. Earlier this year she obtained a tilt in space wheelchair and this has greatly reduced her number of falls. No recent falls reported by staff.She is presently managed on IcyHot patch to her lower back as well as routine acetaminophen. Upon review of the MAR she has not required any PRN dosage of tramadol or Voltaren gel. Staff deny any acute concerns. She has not had any hospitalizations or UTIs since the last evaluation. She continues on d-mannose supplementation for UTI prophylaxis. Patient has a past medical history of dementia, osteoarthritis, depression, lower back pain, recurrent UTIs, degenerative disc disease of the lumbar spine, a long-term steroid and aspirin use, and a history of frequent falls. Social History - Living Situation Living arrangement: Assisted living Support System: The patient resides at [facility]. Her daughter, Nancy is her D POA ([phone] (. The patient has 3 children, 1 daughter and 2 sons.The patient relocated to [facility] in 2010. Medications/Allergies - Medications Home Medications: Ambulatory Orders Medication Instructions Recorded Confirmed Acetaminophen 500 mg PO Q4H PRN MDD APAP NTE 04/20/17 06/01/19 3000mg/24 hrs Aspirin 81 mg PO DAILY 04/20/17 06/01/19 Citalopram Hydrobromide 20 mg PO DAILY 04/20/17 06/01/19 [Citalopram HBr] Diclofenac Sodium [Voltaren] 100 gm TP BID PRN 04/20/17 06/01/19 Omeprazole 20 mg PO DAILY 04/20/17 06/01/19 polyethylene glycoL 3350 [Miralax] 17 gm PO DAILY PRN 04/20/17 06/01/19 Acetaminophen [Arthritis Pain 1,300 mg PO BID MDD NTE 3000MG IN 06/29/17 06/01/19 Relief] 24 HOURS D-Mannose Capsule 2,000 mg PO DAILY 10/20/17 06/01/19 Senna [Senokot] 2 tab PO DAILY 10/20/17 06/01/19 Tramadol HCl 50 mg PO Q6H PRN #25 tablet 02/13/18 06/01/19 Menthol [Icy Hot] 1 patch TOP DAILY MDD apply 8AM 06/01/19 06/01/19 and remove 8PM - Allergies Allergies/Adverse Reactions: Allergies Allergy/AdvReac Type Severity Reaction Status Date / Time strawberry Allergy Unknown Verified 04/04/19 15:27 Review of Systems - Constitutional Constitutional: reports: Weight stable. denies: Fever - Eyes Eyes: denies: Corrective lenses - Ears, Nose & Throat Ears, Nose & Throat: denies: Nasal congestion - Cardiovascular Cardiovascular: denies: Edema - Respiratory Respiratory: denies: Cough, Wheezing - Gastrointestinal Gastrointestinal: reports: Good appetite. denies: Abdominal pain, Constipation (controlled), Vomiting - Genitourinary Genitourinary: reports: Incontinence - Musculoskeletal Musculoskeletal: reports: Back pain, Assistive devices, Transfer issues. denies: Joint pain - Integumentary Integumentary: denies: Rash - Neurological Neurological: reports: General weakness, Memory problems - Psychiatric Psychiatric: reports: Depression - Endocrine Endocrine: denies: Diabetes type 2 - Hematologic/Lymphatic Hematologic/Lymphatic: reports: Recurrent infections (history of UTIs, last treated 2017) - All Other Systems All Other Systems: reports: Reviewed and negative (Review of systems is limited as the patient is a poor historian due to dementia. Review of systems obtained from caregivers and nursing staff.) Physical Exam - Vital Signs Temperature: 97.3 C Pulse Rate: 68 O2 Saturation: 97 (on RA at rest) Blood Pressure: 103/80 (left wrist cuff lying down) - Physical Exam General Appearance: positive: No acute distress, Alert, Other (resting in bed on her back, arousable) Eyes Bilateral: positive: Normal inspection ENT: positive: No signs of dehydration Neck: positive: Trachea midline Cardiovascular: positive: Regular rate & rhythm, No murmur Respiratory: positive: No respiratory distress, Breath sounds nml. negative: Rales Abdomen: positive: Non-tender, Soft, Nml bowel sounds. negative: Guarding Skin: positive: No symptoms Extremities: positive: No pedal edema Neurologic/Psychiatric: positive: Disoriented to person, Disoriented to place, Disoriented to time, Unintelligible speech (world salad), Other (pleasantly confused) Palliative Care - POLST Patient has POLST: Yes POLST Status: DNR, Comfort Measures Pain: No pain (history of back pain and OA, controlled) Anorexia: None Sleep: Sleeps well Constipation: No, Managed Performance Status: Patient is no longer ambulatory. She requires a tilt in space wheelchair for truncal stability. She is wheelchair dependent for all ADLs. Staff assist with mealtime feedings. She is incontinent of bowel and bladder. FAS T7 C - Palliative Care Discussion: The patient continues to have a slow and steady decline in functional and cognitive status due to advanced dementia. Her weight remains stable and she continues to require assistance with mealtimes. Staff deny any acute concerns regarding behaviors or medical management. The staff report that the patient has been stable. She is not demonstrating any signs or symptoms of lower back pain and is presently controlled. The patient's daughter/D KAE Cruz is quite anxious for her restrictions regarding the coronavirus to be lifted when it is safe so that she may begin visiting the patient in person. It has been several months since they have had an interaction in person and this is been quite difficult for the daughter. However, the daughter recognizes the need for safety and is appreciative of the care that the patient has been receiving at the facility. Impression and Recommendations - Palliative Care Impression: This is a melanie 84-year-old woman with a history advanced dementia, likely Alzheimer's in origin, with a slow functional and cognitive decline without any behavioral disturbances. She is wheelchair-bound and her weight remains stable. She is a FAS T7 C. She is a history of lower back pain that is presently controlled. Palliative care to continue provide support on symptom management and anticipatory guidance. Recommendations/Counseling Done: 1. Low back pain with a history of T12 compression fracture. Improvement of pain with implementation of tilt in space wheelchair. Continue IcyHot patch to lower back to be applied in the a.m. and removed in the p.m. for pain. Continue acetaminophen arthritis 650 mg 2 tablets twice daily. Patient has not required any as needed tramadol are Voltaren gel for pain management. Likely, as the patient is no longer ambulatory this has greatly reduced her pain burden. Continue to monitor and adjust pain regiment as needed. 2. Osteoarthritis. Controlled without reports of pain noted by staff. No longer ambulatory. Continue arthritis acetaminophen 600 Adenike milligrams 2 tablets twice daily. Continue as needed Voltaren gel and tramadol for pain. 3. History of UTIs. No recent recurrence. Last documented UTI in 2018. Continue d-mannose supplementation for UTI prophylaxis. 4. Advanced care planning. POLST is DN AR with comfort care focus. Time Spent: Total time spent 20 minutes with greater than 50% of this spent in counseling and coordination of care with daughter/DPSHONA Cruz via phone in patient's presence with questions answered and addressed; examination of patient; review of symptom management and anticipatory guidance. Disclaimer: The chart note was formulated using voice recognition technology and unfortunately sound alike errors may occur.
== END 2019-08-14 14:21 | disposition home or self-care (01) ==
LOC: PC 14:20
PROVIDERS: ATTEND Nurse Practitioner Family
DX: Z51.5 Encounter for palliative care (principal); F03.91 Unspecified dementia, unspecified severity, with behavioral disturbance; G89.29 Other chronic pain; M51.36 Other intervertebral disc degeneration, lumbar region; M48.54XS Collapsed vertebra, not elsewhere classified, thoracic region, sequela of fracture; M19.90 Unspecified osteoarthritis, unspecified site; R53.1 Weakness; Z79.52 Long term (current) use of systemic steroids; Z79.82 Long term (current) use of aspirin; Z79.899 Other long term (current) drug therapy; Z99.3 Dependence on wheelchair; Z91.81 History of falling; Z87.440 Personal history of urinary (tract) infections; Z66 Do not resuscitate

== ENCOUNTER 2019-12-28 11:35 | Outpatient (CLI) | payer MEDICARE, OTHER ==
--- NOTE | 2019-12-28 12:48 | CONSULTATION NOTE ---
Palliative Care Follow Up - Referral Referring Provider: Dr. Andrew Ren Time of Visit: Initated 1135 Referral setting: Assisted living Referral Reason: Dementia/Constipation - Information Sources Records reviewed: Previous records reviewed History/Review of Systems obtained from: Caregiver, Nursing Exam limitations: Clinical condition (Advanced dementia) - History of Present Illness Update Brief HPI Update: This is an 84-year-old female with advanced dementia who has had a slow and progressive decline who continues to presently be stable. She is seen and evaluated today at [facility] in follow-up. The patient has a history of constipation and is presently regular upon review of of her bowel movement trends typically having a bowel movement daily or every other day. She is presently controlled on MiraLAX 17 g daily and senna 8.6mg Twice daily. The patient is nonambulatory and will spend time in the common area in her tilt in space wheelchair and this is greatly reduced her number of falls. No recent documented falls in the last 90 days. She does have a history of chronic back pain and this is managed with IcyHot patch to her lower back as well as routine acetaminophen. Staff report that she typically does not require any as needed dosage of tramadol or Voltaren gel. They have not noted any increased evidence of of uncontrolled pain such as behavioral disturbances. The patient's weight is at 157.6 pounds which has been stable for the last several months. No evidence of weight loss. She does not have any lower extremity edema. She is consuming approximately 100% of her meals. Staff offer up no acute concerns regarding the patient's care or behavioral disturbances. The patient is seen today in bed, alert and communicating via word salad. No evidence of acute distress. Past Medical History: Patient has a past medical history of dementia, osteoarthritis, depression, lower back pain, recurrent UTIs, degenerative disc disease of the lumbar spine, long-term steroid and aspirin use, history of frequent falls. Social History - Living Situation Living arrangement: Assisted living Support System: The patient resides at [facility]. Her daughter, Nancy is her DPOA contacting her [phone]. The patient has 3 children, 1 daughter and 2 sons. The patient relocated to [facility] in 2010. Medications/Allergies - Medications Home Medications: Ambulatory Orders Medication Instructions Recorded Confirmed Acetaminophen 500 mg PO Q4H PRN MDD APAP NTE 04/20/17 12/28/19 3000mg/24 hrs Aspirin 81 mg PO DAILY 04/20/17 12/28/19 Citalopram Hydrobromide 20 mg PO DAILY 04/20/17 12/28/19 [Citalopram HBr] Diclofenac Sodium [Voltaren] 100 gm TP BID PRN 04/20/17 12/28/19 Omeprazole 20 mg PO DAILY 04/20/17 12/28/19 polyethylene glycoL 3350 [Miralax] 17 gm PO DAILY PRN 04/20/17 12/28/19 Acetaminophen [Arthritis Pain 1,300 mg PO BID MDD NTE 3000MG IN 06/29/17 12/28/19 Relief] 24 HOURS D-Mannose Capsule 2,000 mg PO DAILY 10/20/17 12/28/19 Senna [Senokot] 2 tab PO DAILY 10/20/17 12/28/19 Tramadol HCl 50 mg PO Q6H PRN #25 tablet 02/13/18 12/28/19 Menthol [Icy Hot] 1 patch TOP DAILY MDD apply 8AM 06/01/19 12/28/19 and remove 8PM - Allergies Allergies/Adverse Reactions: Allergies Allergy/AdvReac Type Severity Reaction Status Date / Time strawberry Allergy Unknown Verified 04/04/19 15:27 Review of Systems - Constitutional Constitutional: reports: Weight gain (weight 157.6lb). denies: Fever - Eyes Eyes: denies: Corrective lenses - Ears, Nose & Throat Ears, Nose & Throat: denies: Hearing aids - Cardiovascular Cardiovascular: denies: Edema - Respiratory Respiratory: denies: Wheezing - Gastrointestinal Gastrointestinal: reports: Good appetite. denies: Constipation, Vomiting - Genitourinary Genitourinary: reports: Incontinence - Musculoskeletal Musculoskeletal: reports: Back pain (controlled), Assistive devices, Transfer i ssues - Integumentary Integumentary: denies: Pruritis - Neurological Neurological: reports: General weakness, Numbness - Psychiatric Psychiatric: reports: Depression - Endocrine Endocrine: denies: Diabetes type 2 - Hematologic/Lymphatic Hematologic/Lymph: Recurrent infections (UTIs) - All Other Systems All Other Systems: reports: Reviewed and negative (Review of systems is limited as patient is a poor historian due to dementia. Review of systems obtained from caregivers and nursing staff.) Physical Exam - Vital Signs Temperature: 36.5 C Pulse Rate: 87 O2 Saturation: 95 (on RA at rest) Blood Pressure: 126/75 (left wrist cuff) - Physical Exam General Appearance: positive: No acute distress, Alert, Other (resting in bed, overweight) Eyes Bilateral: positive: Normal inspection. negative: No lid inflammation ENT: positive: No signs of dehydration Neck: negative: Lymphadenopathy (R), Lymphadenopathy (L) Cardiovascular: positive: Regular rate & rhythm Respiratory: positive: No respiratory distress, Breath sounds nml Abdomen: positive: Non-tender, Soft, Nml bowel sounds, Other (round) Skin: negative: Pressure wound Extremities: positive: No pedal edema Neurologic/Psychiatric: positive: Disoriented to person, Disoriented to place, Disoriented to time, Unintelligible speech (word salad), Other (Pleasantly confused) Palliative Care - POLST Patient has POLST: Yes POLST Status: DNR, Comfort Measures Pain: No pain (see HPI) Constipation: No, Managed Performance Status: Patient is nonambulatory. She is in a tilt in space wheelchair for truncal stability. She is wheelchair dependent and requires assistance with all ADLs. Staff assist with mealtime feedings consuming approximately 100% of her meals. She is incontinent of bowel and bladder. FAST 7C - Palliative Care Discussion: The patient is presently stable and has evidence of edema and advanced dementia and continues to have a slow decline functionally. She has had some recent weight gain that has presently stabilized and she continues to require assistance from staff revolving mealtimes. Staff Denies any increased signs or symptoms of pain and this is presently controlled with her current pain regimen. Impression and Recommendations - Palliative Care Impression: This is an 84-year-old woman with a history of advanced dementia, likely Alzheimer's in origin who is presently stable at a F AST 7C. She has a history of depression and constipation both that are presently controlled. Palliative care will continue to provide support and symptom management and anticipatory guidance. Recommendations/Counseling Done: 1. Osteoarthritis. Controlled without reports of increased pain by staff. Nonambulatory. Continue arthritis acetaminophen 650 mg twice daily. Continue as needed Voltaren gel and tramadol for pain. Continue to monitor and adjust dosage of pain regimen as needed based on patient's symptomatology. 2. History of constipation. Controlled. Continue MiraLAX and senna as ordered. 3. Depression.No evidence of labile mood and is pleasantly confused. Remaining without behavioral issues. Continue citalopram 20 mg daily. 4. Dementia without behavioral disturbances. Chronic. Progressive. Supportive care. Fall precautions. No behavioral concerns reported by staff. On no disease modifying agents. A gradual decline is expected given the patient's advanced age and chronic comorbidities. Time Spent: CPT 73966 POC reviewed with nursing staff and caregivers with questions answered and addressed. Message left for daughter/DPOA Nancy at [phone] to update regarding patient's clinical status and may return call if additional questions or concerns. Disclaimer: The chart note was formulated using voice recognition technology and unfortunately sound alike errors may occur.
== END 2019-12-28 11:36 | disposition home or self-care (01) ==
LOC: PC 11:35
PROVIDERS: ATTEND Nurse Practitioner Family
DX: Z51.5 Encounter for palliative care (principal); M19.90 Unspecified osteoarthritis, unspecified site; K59.00 Constipation, unspecified; M51.36 Other intervertebral disc degeneration, lumbar region; F03.90 Unspecified dementia, unspecified severity, without behavioral disturbance, psychotic disturbance, mood disturbance, and anxiety; Z79.899 Other long term (current) drug therapy; Z79.82 Long term (current) use of aspirin; Z99.3 Dependence on wheelchair; Z87.440 Personal history of urinary (tract) infections; Z91.81 History of falling; Z66 Do not resuscitate

== ENCOUNTER 2020-01-24 14:00 | Outpatient (CLI) | payer MEDICARE, OTHER ==
--- NOTE | 2020-01-24 16:34 | PROVIDER PROGRESS NOTE ---
HPI/Interval History - HPI/Interval History This is an 84-year-old female who was seen and evaluated today via telemedicine due to recessions acute clinical changes and overall decline in the setting of [facility] with Leandra SULLIVAN present. Patient began to experience evening febrile temperatures over the weekend. Her temperatures were ranging between 99.8-100.3. The patient initially did not have any cough and per report had an infected tooth with an inflamed gum that was requested to be removed by the dentist but given the patient's underlying dementia requires anesthesia. Due to the outbreak of coronavirus and the patient's facility setting it has not been able to be set up and on 01/21 the patient was initiated on clindamycin 300 mg 1 capsule 3 times daily for dental abscess. The patient has been able to receive her dosages of antibiotic therapy and has not had noted improvement. NATE Mobley reports that yesterday the patient had a couple of bites of food but overall, is not can consuming meals or taking much liquid in. She was able to have all of her medication today. Her temperature this morning was 99.7 and has subsequently gone down. The patient has had oxygen desaturation into the 80s and with supplemental oxygen in place via nasal cannula will go up into the low 90s. She is having some noted mouth breathing at times. She was initiated on morphine sulfate 5 mg by mouth every 4 hours as needed for pain, shortness of breath or increased respirations. She received a dose of morphine at approximately 8 in the morning due to restlessness and facial grimacing with a positive response. Most of the day she has had her eyes closed. She received her second dose of of morphine and a little afternoon today and again, positive response. The patient has had multiple negative rapid Covid test. Her Covid PCR test has been obtained and potentially may come back tomorrow with the results. The patient's daughter has been in close contact with this [facility] as well as facility staff and she is quite clear that she wishes to have the patient remain at the facility to focus on comfort measures. The patient is seen resting in bed with noted mouth breathing, no adventitious lung sounds noted audibly and she appears comfortable. During the course of the evaluation she did open her eyes and in gauge looking at the phone but did not respond verbally. Review of Systems - Constitutional Constitutional: reports: Fever, Poor appetite - Ears, Nose & Throat Ears, Nose & Throat: denies: Hearing loss - Cardiovascular Cardiovascular: denies: Edema - Respiratory Respiratory: reports: Other (see HPI) - Gastrointestinal Gastrointestinal: reports: Poor appetite. denies: Vomiting - Genitourinary Genitourinary: reports: Incontinence - Musculoskeletal Musculoskeletal: reports: Back pain (hisotry of back pain on routine acetaminophen), Assistive devices, Transfer issues - Neurological Neurological: reports: General weakness, Memory problems - Psychiatric Psychiatric: reports: Depression - Hematologic/Lymphatic Hematologic/Lymph: Recurrent infections (UTIs) - All Other Systems All Other Systems: reports: Reviewed and negative (Review of systems is limited as patient is a poor historian due to dementia. Review of systems obtained from Leandra SULLIVAN) Medications/Allergies - Medications Home Medications: Ambulatory Orders Medication Instructions Recorded Confirmed Acetaminophen 500 mg PO Q4H PRN MDD APAP NTE 04/20/17 12/28/19 3000mg/24 hrs Aspirin 81 mg PO DAILY 04/20/17 12/28/19 Citalopram Hydrobromide 20 mg PO DAILY 04/20/17 12/28/19 [Citalopram HBr] Diclofenac Sodium [Voltaren] 100 gm TP BID PRN 04/20/17 12/28/19 Omeprazole 20 mg PO DAILY 04/20/17 12/28/19 polyethylene glycoL 3350 [Miralax] 17 gm PO DAILY PRN 04/20/17 12/28/19 Acetaminophen [Arthritis Pain 1,300 mg PO BID MDD NTE 3000MG IN 06/29/17 12/28/19 Relief] 24 HOURS Senna [Senokot] 2 tab PO DAILY 10/20/17 12/28/19 Menthol [Icy Hot] 1 patch TOP DAILY MDD apply 8AM 06/01/19 12/28/19 and remove 8PM Morphine Sulfate [Morphine Sulf 2.5 mg PO TID 01/24/20 01/24/20 Oral (Roxanol)] Morphine Sulfate [Morphine Sulfate 5 mg PO Q2H PRN 01/24/20 01/24/20 oral soln (Roxanol)] - Allergies Allergies/Adverse Reactions: Allergies Allergy/AdvReac Type Severity Reaction Status Date / Time strawberry Allergy Unknown Verified 01/24/20 16:47 Physical Exam - Physical Exam Vital Signs: 102/63, 103 General: Resting in bed, mouth breathing, no visible distress. Drowsy. Head: NC/AT. ENT: mucous membranes appear slightly dry Resp: Supplemental oxygen in place. No audible adventagous lung sounds. Nursing reports coarse lung sounds. No accessory muscle use. Breathing appears unlabored. CV: appears pale GI: round Skin: No rashes visible Pscyh: At baseline pleasantly confused with word salad; drowsy today and when opened her eyes did not engage with speaking and drifted back off to sleep Palliative Care - POLST Patient has POLST: Yes POLST Status: DNR, Comfort Measures Performance Status: At baseline the patient is nonambulatory and requires assistance for all ADLs. She also requires assistance with feedings. She is incontinent of bowel and bladder. FAS T7 C - Palliative Care Discussion: Earlier in December 2019, the patient was seen and evaluated for a a broken tooth that was recommended to be removed but due to a series of unfortunate events due to the coronavirus surge in the patient's facility this was not able to be initiated. The patient then began developing a febrile state and changes to her gum indicative of a possible dental abscess and was initiated on clindamycin without a positive clinical response. The patient has further dec lined and is hypoxic requiring supplemental oxygen to maintain her oxygen saturations above 90%. It is likely that she may also have contracted coronavirus and the PCR testing is pending. Overall, the patient has had a sharp functional decline and given her lack of oral intake prognosis is likely days to 1 to 2 weeks as best we know. Lengthy discussion with the patient's daughter/DPOA, Nancy who verbalizes understanding regarding the patient's physical decline and does not wish for hospital transfer for hospital level of care. Introduced the concept of hospice services to the patient's daughter to be in place at the patient's home and facility and daughter is amenable to this. Given the patient's positive response to morphine sulfate will initiate this dose 2.5 mg 3 times daily and reduce the frequency to ensure the patient's optimal comfort. Questions answered and addressed with the daughter and referral placed to hospice services. Impression and Recommendations - Palliative Care Impression: This is an 84-year-old female with a history advanced dementia, likely Alzheimer's in origin, FAS T7 C with a significant functional decline possibly due to dental abscess failing outpatient antibiotic therapy and hypoxia. Patient has been negative for rapid Covid testing with Covid PCR pending and given the patient's respiratory symptoms, febrile state and potential exposures coronavirus cannot be ruled out as contributing to her decline. Daughter/DPOA wishes to focus on comfort measures within the facility and is agreeable to transition to hospice services to ensure the patient's comfort. Recommendations/Counseling Done: 1. Dental abscess due to broken tooth. Initiated on clindamycin therapy, continues to be slightly febrile despite routine acetaminophen administration, likely failing outpatient therapy and potential bacteremia. Patient is taking Nothing nutritionally by mouth today and continues to demonstrate increased drowsiness and fatigue. Reviewed at length with patient's daughter/DPOA potential options such as transfer to the hospital for further evaluation and IV antibiotic therapy versus staying within the facility and focus on comfort measures and transition to hospice services. The patient's daughter/DPOA is aware of the patient's clinical decline and wishes to opt for comfort measures within the facility and a transition to hospice services. 2. Hypoxia. Patient's oxygen saturations have desaturated to 80% when left on room air and responds positively to supplemental oxygen placement. Continue supplemental oxygen for comfort. Initiated morphine sulfate and to decrease morphine sulfate to 5 mg every 2 hours as needed for pain, shortness of breath, or respirations greater than 25 breaths/min. Initiate morphine sulfate 2.5 mg 3 times daily for pain/shortness of breath and hold for respirations less than 10 breaths/min. Coronavirus although rapid testing has been negative, cannot be ruled out given the patient's exposure and respiratory symptoms. Provide supportive measures. Transition to hospice services. 3. Dementia without behavioral disturbances. Likely Alzheimer's dementia as no prior history of cardiovascular disease. Chronic. Progressive. Supportive care. Fall precautions. No behavioral disorders reported by staff. Continue citalopram as ordered. Given the patient's advanced age a gradual Grant is expected. 4. Advanced care planning. POLST in place is DNR with comfort care focus. Introduced concept of hospice services given the patient's functional decline and decreased oral intake with prognosis of days to 1 to 2 weeks and daughter in agreement to transition to hospice services with the patient to remain on site for care. Patient's daughter wishes to focus on comfort and quality of life. Please see diagnosis hypoxia for further details. Discontinue routine vital signs, labs, probiotic, tramadol, d-mannose. Supportive listening provided for the daughter. Time Spent: Total time spent 15 minutes with greater than 50% of this spent in counseling and coordination of care with nursing; review of pain and symptom management and anticipatory guidance. Spoke to the patient's daughter/POANancy over the phone at [phone] discussing the patient's clinical status, decline, prognosis, introduction of hospice services with questions answered and addressed. Contacted patient's PCP, Dr. Ren and left message regarding transition to hospice services. Disclaimer: The chart note was formulated using voice recognition technology and unfortunately sound alike errors may occur. Telehealth Visit - TeleMedicine Visit Referring Provider: Dr. Andrew Ren Visit Type:: TeleHealth Video Call Patient agrees and consents to this telehealth visit type: Yes Patient agrees to have their insurance billed: Yes Time spent:: Iniated [id number] Video type:: Go to Meet Participants:: Other (Leandra SULLIVAN) Location of provider:: Office Location of patient:: Assisted Living Provider Statement: I spent 100% on the TeleHealth Video Call with the patient with greater than 50% spent counseling the patient and coordination of care.
== END 2020-01-24 14:01 | disposition home or self-care (01) ==
LOC: PC 14:00
PROVIDERS: ATTEND Nurse Practitioner Family
DX: Z51.5 Encounter for palliative care (principal); K04.7 Periapical abscess without sinus; R09.02 Hypoxemia; F03.90 Unspecified dementia, unspecified severity, without behavioral disturbance, psychotic disturbance, mood disturbance, and anxiety; Z99.81 Dependence on supplemental oxygen; Z20.828 Contact with and (suspected) exposure to other viral communicable diseases; Z66 Do not resuscitate